=== PATIENT | female | born 1960 | race Caucasian/White ===

== ENCOUNTER 2020-06-30 18:55 | Inpatient (IN) | payer OTHER, SELFPAY ==
[2020-06-30] MEDS ORDERED: Lorazepam 2 MG/ML VIAL ONE (19:12)
[2020-06-30] MEDS ORDERED: Diazepam 5 MG TAB ONE (19:12)
[2020-06-30 20:11] LABS: Acetaminophen Less than 6.0 mcg/mL (10.0-30.0); Alcohol 134 mg/dL (Less than 10); Salicylate Less than 8.0 mg/dL (15.0-30.0)
[2020-06-30 20:13] LABS: ALT (SGPT) 40 U/L (8-55); AST (SGOT) 204 U/L (5-34); Albumin 3.4 g/dL (3.4-4.8); Alkaline Phosphatase 152 U/L (40-110); Anion Gap 29 mmol/L (10-20); BUN (Urea Nitrogen) 6 mg/dL (9.8-20.1); Bilirubin, Total 5.2 mg/dL (0.2-1.2); CK (CPK) 691 U/L (29-168); Calc. Creatinine Clearance 0 mL/min (70-130); Calcium 8.4 mg/dL (7.8-10.44); Carbon Dioxide 17 mmol/L (23-31); Chloride 95 mmol/L (98-107); Globulin 3.3 g/dL (2.4-3.5); Glucose 89 mg/dL (80-115); Hemoglobin 11.7 g/dL (12.0-15.5); Mean Corpuscular Hemoglobin 36.7 pg (27.0-33.0); Mean Corpuscular Volume 104.7 fl (81.6-98.3); Mean Platelet Volume 9.8 fl (7.4-10.4); Platelet Count 78 10x3/uL (150-450); Potassium 3.1 mmol/L (3.5-5.1); Protein, Total 6.7 g/dL (5.8-8.1); RBC Distribution Width 13.8 % (11.5-14.5); Red Blood Cell (RBC) Count 3.19 10x6/uL (3.90-5.03); Sodium 138 mmol/L (136-145); White Blood Cell (WBC) Count 7.4 10x3/uL (3.5-10.5)
[2020-06-30 20:14] LABS: MDiff Complete? YES
[2020-06-30 20:18] LABS: Band 10 % (5-11); Lymphocytes 1 % (21-51); Monocytes 7 % (0-10); Neutrophil 81 % (42-75)
[2020-06-30 20:19] LABS: Platelet Morphology Comment Appears Decreased
[2020-06-30 21:15] LABS: SARS-CoV-2 NAA Rapid Test Not Detected (NotDetected)
[2020-06-30] MEDS ORDERED: Potassium Chloride 20 MEQ TAB PO SCH (22:15)
[2020-06-30] MEDS ORDERED: Sodium Chloride 0.9% (PF) 10 ML VIAL FS PRN (22:15)
[2020-06-30] MEDS ORDERED: Pantoprazole 40 MG VIAL IVP SCH (22:15)
[2020-06-30 22:47] LABS: Lactic Acid 3.2 mmol/L (0.5-2.2)
[2020-06-30] MEDS: Thiamine HCl 200 MG/2 ML VIAL SLOW IVP SCH (23:42)
[2020-07-01] MEDS: Diazepam 5 MG TAB PO PRN ×2 (00:26→05:24)
[2020-07-01] MEDS ORDERED: Lorazepam 2 MG/ML VIAL SLOW IVP PRN (00:35)
[2020-07-01] MEDS ORDERED: Magnesium 2 GM/50 ML 2 GM in Premix Bag 1 BAG IVPB SCH (01:30)
[2020-07-01 05:22] LABS: Bilirubin 1+ (Negative); Blood, Urine 25 (Negative); Clarity Clear (Clear); Glucose, Urine (Dipstick) Normal (Negative); Ketone, Urine 50 mg/dL (Negative); Leukocyte 25 (Negative); Nitrite Negative (Negative); Protein, Urine (Dipstick) Negative (Neg-Trace); Specific Gravity, Urine 1.005 (1.002-1.036)
[2020-07-01 05:31] LABS: Amphetamine Not Detected (NotDetected); Barbiturates Screen Not Detected (NotDetected); Benzodiazepine Screen Detected (NotDetected); Cocaine Metabolite Screen Not Detected (NotDetected); Methadone Not Detected (NotDetected); Methamphetamine Not Detected (NotDetected); Opiate Screen Not Detected (NotDetected); Oxycodone Screen Not Detected (NotDetected); Phencyclidine (PCP) Not Detected (NotDetected); THC/Cannabinoid Screen Not Detected (NotDetected); Tricyclic Screen Not Detected (NotDetected)
[2020-07-01 05:37] LABS: #Monocytes 0.5 10x3/uL (0.0-1.1); #Neutrophils 4.4 10x3/uL (1.5-8.4); %Basophils 0.7 % (0.0-2.0); %Eosinophils 0.2 % (0.0-6.0); %Lymphocytes 12.8 % (18.0-47.0); %Monocytes 8.3 % (0.0-10.0); %Neutrophils 77.3 % (40.0-75.0); Hemoglobin 10.8 g/dL (12.0-15.5); Mean Corpuscular HGB CONC 35.2 g/dL (32.0-36.0); Mean Corpuscular Hemoglobin 36.7 pg (27.0-33.0); Mean Corpuscular Volume 104.4 fl (81.6-98.3); Mean Platelet Volume 10.2 fl (7.4-10.4); Platelet Count 57 10x3/uL (150-450); RBC Distribution Width 13.9 % (11.5-14.5); Red Blood Cell (RBC) Count 2.97 10x6/uL (3.90-5.03); White Blood Cell (WBC) Count 5.6 10x3/uL (3.5-10.5)
[2020-07-01 05:38] LABS: Lactic Acid 1.2 mmol/L (0.5-2.2)
[2020-07-01 05:39] LABS: Urine Culture Reflex No No
[2020-07-01 05:42] LABS: Bacteria/HPF 2+ HPF (None Seen); RBC/HPF 0-3 HPF (0-3); Squamous Epithelial 0-3 HPF (0-3); WBC/HPF 0-3 HPF (0-3)
[2020-07-01 05:43] LABS: ALT (SGPT) 36 U/L (8-55); AST (SGOT) 186 U/L (5-34); Albumin 3.1 g/dL (3.4-4.8); Alkaline Phosphatase 121 U/L (40-110); Anion Gap 27 mmol/L (10-20); BUN (Urea Nitrogen) 5 mg/dL (9.8-20.1); Bilirubin, Total 4.9 mg/dL (0.2-1.2); CK (CPK) 442 U/L (29-168); Calc. Creatinine Clearance 126 mL/min (70-130); Calcium 7.9 mg/dL (7.8-10.44); Carbon Dioxide 15 mmol/L (23-31); Chloride 102 mmol/L (98-107); Globulin 2.9 g/dL (2.4-3.5); Glucose 63 mg/dL (80-115); Magnesium 1.9 mg/dL (1.6-2.6); Potassium 3.4 mmol/L (3.5-5.1); Sodium 141 mmol/L (136-145)
[2020-07-01 06:04] LABS: Ferritin 679.93 ng/mL (10-291); Thyroid Stimulating Hormone 10.8737 uIU/mL (0.35-4.94)
[2020-07-01 06:24] LABS: INR-International Normal Ratio 1.2; PTT 27.4 sec (22.0-33.0); Prothrombin Time 13.5 sec (9.5-12.1)
[2020-07-01] MEDS: NS 0.9% w/ 40 MEQ KCL 1,000 ML IV SCH ×3 (08:48→11:22)
[2020-07-01] MEDS: Multivitamins, Adult 10 ML, Folic Acid 1 MG, Thiamine HCl 100 MG in Dextrose 5 %-0.45 %... IV SCH (11:18)
[2020-07-01] MEDS: Potassium Chloride 10 MEQ in Dextrose 5 % And 0.9 % NaCl 1,000 ML IV SCH (17:39)
[2020-07-01] MEDS: traMADol HCl 50 MG TAB PO PRN (17:39)
[2020-07-01] MEDS: Pantoprazole 40 MG VIAL IVP SCH (20:49)
[2020-07-01] MEDS: Thiamine HCl 200 MG/2 ML VIAL SLOW IVP SCH (21:17)
[2020-07-02] MEDS: Potassium Chloride 10 MEQ in Dextrose 5 % And 0.9 % NaCl 1,000 ML IV SCH ×3 (00:19→20:53)
[2020-07-02] MEDS: traMADol HCl 50 MG TAB PO PRN ×4 (00:23→23:33)
[2020-07-02 05:13] LABS: #Eosinphils 0.1 10x3/uL (0.0-0.5); #Monocytes 0.4 10x3/uL (0.0-1.1); #Neutrophils 3.3 10x3/uL (1.5-8.4); %Basophils 0.7 % (0.0-2.0); %Eosinophils 1.1 % (0.0-6.0); %Monocytes 9.3 % (0.0-10.0); %Neutrophils 73.5 % (40.0-75.0); Hemoglobin 10.3 g/dL (12.0-15.5); Mean Corpuscular Hemoglobin 36.3 pg (27.0-33.0); Mean Corpuscular Volume 103.5 fl (81.6-98.3); RBC Distribution Width 14.1 % (11.5-14.5); Red Blood Cell (RBC) Count 2.84 10x6/uL (3.90-5.03); White Blood Cell (WBC) Count 4.4 10x3/uL (3.5-10.5)
[2020-07-02 05:15] LABS: Platelet Count 60 10x3/uL (150-450)
[2020-07-02 05:26] LABS: Anion Gap 15 mmol/L (10-20); BUN (Urea Nitrogen) 4 mg/dL (9.8-20.1); Calc. Creatinine Clearance 120 mL/min (70-130); Calcium 7.5 mg/dL (7.8-10.44); Carbon Dioxide 23 mmol/L (23-31); Chloride 103 mmol/L (98-107); Glucose 147 mg/dL (80-115); Magnesium 1.5 mg/dL (1.6-2.6); Sodium 138 mmol/L (136-145)
[2020-07-02] MEDS ORDERED: Thiamine HCl 200 MG/2 ML VIAL ONE (08:19)
[2020-07-02] MEDS: Magnesium 2 GM/50 ML 2 GM in Premix Bag 1 BAG IVPB SCH ×2 (08:37→10:10)
[2020-07-02] MEDS: Dextrose 5 %-0.45 % NaCl 1,000 ML ONE ×2 (08:38→10:13)
[2020-07-02] MEDS: Ondansetron PF 4 MG/2 ML Vial IVP PRN (08:40)
[2020-07-02] MEDS ORDERED: Potassium Chloride 20 MEQ TAB PO SCH (09:00)
[2020-07-02] MEDS: Ondansetron ODT 4 MG TAB PO PRN (09:10)
[2020-07-02] MEDS ORDERED: Magnesium 2 GM/50 ML BAG (IN WATER) ONE (10:07)
[2020-07-02] MEDS: Multivitamins, Adult 10 ML, Folic Acid 1 MG, Thiamine HCl 100 MG in Dextrose 5 %-0.45 %... IV SCH (10:09)
[2020-07-02] MEDS: Diazepam 5 MG TAB PO PRN ×2 (10:09→17:34)
[2020-07-02] MEDS: cefTRIAXone\\ROCEPHIN 2 GM in Sodium Chloride 0.9% 100 ML IVPB SCH (15:57)
[2020-07-02] MEDS: Pantoprazole 40 MG VIAL IVP SCH (20:52)
[2020-07-02] MEDS: Thiamine HCl 200 MG/2 ML VIAL SLOW IVP SCH (21:45)
[2020-07-03] MEDS: Potassium Chloride 10 MEQ in Dextrose 5 % And 0.9 % NaCl 1,000 ML IV SCH ×3 (01:12→17:45)
[2020-07-03] MEDS: Levothyroxine Sodium 50 MCG TAB PO SCH (06:00)
[2020-07-03] MEDS: Diazepam 5 MG TAB PO PRN ×3 (08:16→20:26)
[2020-07-03] MEDS: Ondansetron PF 4 MG/2 ML Vial IVP PRN (09:30)
[2020-07-03] MEDS: Multivitamins, Adult 10 ML, Folic Acid 1 MG, Thiamine HCl 100 MG in Dextrose 5 %-0.45 %... IV SCH (09:34)
[2020-07-03 11:56] LABS: Free T4 (Free Thyroxine) 0.95 ng/dL (0.70-1.48)
[2020-07-03] MEDS: traMADol HCl 50 MG TAB PO PRN ×2 (12:31→18:28)
[2020-07-03] MEDS: cefTRIAXone\\ROCEPHIN 2 GM in Sodium Chloride 0.9% 100 ML IVPB SCH (14:18)
[2020-07-03] MEDS: Thiamine HCl 200 MG/2 ML VIAL SLOW IVP SCH (20:45)
[2020-07-03] MEDS: Pantoprazole 40 MG VIAL IVP SCH (20:45)
[2020-07-04] MEDS ORDERED: Dextrose 5 % And 0.9 % NaCl 1,000 ML ONE (01:52)
[2020-07-04] MEDS: Ondansetron ODT 4 MG TAB PO PRN (01:54)
[2020-07-04] MEDS: Potassium Chloride 10 MEQ in Dextrose 5 % And 0.9 % NaCl 1,000 ML IV SCH (02:00)
[2020-07-04] MEDS: D5 0.9% NS w/ 20 mEq KCl 1,000 ML IV SCH (02:40)
[2020-07-04] MEDS: Levothyroxine Sodium 50 MCG TAB PO SCH (06:13)
[2020-07-04 06:18] LABS: #Eosinphils 0.2 10x3/uL (0.0-0.5); #Monocytes 0.6 10x3/uL (0.0-1.1); #Neutrophils 3.3 10x3/uL (1.5-8.4); %Basophils 0.8 % (0.0-2.0); %Eosinophils 3.1 % (0.0-6.0); %Lymphocytes 15.6 % (18.0-47.0); %Monocytes 11.9 % (0.0-10.0); %Neutrophils 67.6 % (40.0-75.0); Hemoglobin 10.4 g/dL (12.0-15.5); Mean Corpuscular HGB CONC 34.3 g/dL (32.0-36.0); Mean Corpuscular Hemoglobin 36.5 pg (27.0-33.0); Mean Corpuscular Volume 106.3 fl (81.6-98.3); Platelet Count 90 10x3/uL (150-450); RBC Distribution Width 14.5 % (11.5-14.5); Red Blood Cell (RBC) Count 2.85 10x6/uL (3.90-5.03); White Blood Cell (WBC) Count 4.9 10x3/uL (3.5-10.5)
[2020-07-04 06:27] LABS: Anion Gap 13 mmol/L (10-20); BUN (Urea Nitrogen) Less than 4 mg/dL (9.8-20.1); Calc. Creatinine Clearance 151 mL/min (70-130); Calcium 7.4 mg/dL (7.8-10.44); Carbon Dioxide 21 mmol/L (23-31); Chloride 105 mmol/L (98-107); Glucose 93 mg/dL (80-115); Magnesium 1.6 mg/dL (1.6-2.6); Potassium 3.5 mmol/L (3.5-5.1); Sodium 135 mmol/L (136-145)
[2020-07-04 06:54] LABS: Anisocytosis SLIGHT = 6-15 cells (100X) (0-5/hpf); Macrocytosis MODERATE=16-30 cells (100X) (0-5/hpf); Platelet Morphology Comment Appears Decreased
[2020-07-04] MEDS ORDERED: D5 0.9% NS w/ 20 mEq KCl 1,000 ML ONE ×2 (09:28)
[2020-07-04] MEDS: Diazepam 5 MG TAB PO PRN ×2 (09:44→17:46)
[2020-07-04] MEDS: Ondansetron PF 4 MG/2 ML Vial IVP PRN (09:45)
[2020-07-04] MEDS: traMADol HCl 50 MG TAB PO PRN (14:06)
[2020-07-04] MEDS: cefTRIAXone\\ROCEPHIN 2 GM in Sodium Chloride 0.9% 100 ML IVPB SCH (14:07)
[2020-07-04] MEDS: Furosemide 100 MG/10 ML VIAL SLOW IVP SCH (14:07)
[2020-07-04] MEDS: Pantoprazole 40 MG VIAL IVP SCH (19:27)
[2020-07-05] MEDS: Furosemide 100 MG/10 ML VIAL SLOW IVP SCH ×2 (06:18→15:11)
[2020-07-05] MEDS: Levothyroxine Sodium 50 MCG TAB PO SCH (06:20)
[2020-07-05] MEDS: D5 0.9% NS w/ 20 mEq KCl 1,000 ML IV SCH ×2 (06:53→12:28)
[2020-07-05] MEDS: Diazepam 5 MG TAB PO PRN ×2 (08:15→19:55)
[2020-07-05] MEDS: Spironolactone 25 MG TAB PO SCH (08:16)
[2020-07-05] MEDS: traMADol HCl 50 MG TAB PO PRN ×2 (15:10→22:43)
[2020-07-05] MEDS: cefTRIAXone\\ROCEPHIN 2 GM in Sodium Chloride 0.9% 100 ML IVPB SCH (15:11)
[2020-07-05] MEDS ORDERED: Pantoprazole 40 MG VIAL ONE (20:02)
[2020-07-05] MEDS: Pantoprazole 40 MG VIAL IVP SCH (20:19)
[2020-07-06] MEDS: D5 0.9% NS w/ 20 mEq KCl 1,000 ML IV SCH ×2 (00:47→16:26)
[2020-07-06] MEDS: Diazepam 5 MG TAB PO PRN ×3 (01:50→21:34)
[2020-07-06 04:31] LABS: Anion Gap 14 mmol/L (10-20); BUN (Urea Nitrogen) 7 mg/dL (9.8-20.1); Calc. Creatinine Clearance 0 mL/min (70-130); Calcium 7.4 mg/dL (7.8-10.44); Carbon Dioxide 26 mmol/L (23-31); Chloride 100 mmol/L (98-107); Glucose 91 mg/dL (80-115); Magnesium 1.2 mg/dL (1.6-2.6); Potassium 3.2 mmol/L (3.5-5.1); Sodium 137 mmol/L (136-145)
[2020-07-06 04:34] LABS: #Eosinphils 0.1 10x3/uL (0.0-0.5); #Monocytes 0.9 10x3/uL (0.0-1.1); #Neutrophils 3.2 10x3/uL (1.5-8.4); %Basophils 0.6 % (0.0-2.0); %Eosinophils 2.1 % (0.0-6.0); %Lymphocytes 13.4 % (18.0-47.0); %Monocytes 17.5 % (0.0-10.0); %Neutrophils 65.4 % (40.0-75.0); Hemoglobin 11.2 g/dL (12.0-15.5); Mean Corpuscular HGB CONC 34.6 g/dL (32.0-36.0); Mean Corpuscular Hemoglobin 37.1 pg (27.0-33.0); Mean Corpuscular Volume 107.3 fl (81.6-98.3); Mean Platelet Volume 9.6 fl (7.4-10.4); Platelet Count 122 10x3/uL (150-450); RBC Distribution Width 15.7 % (11.5-14.5); Red Blood Cell (RBC) Count 3.02 10x6/uL (3.90-5.03); White Blood Cell (WBC) Count 4.9 10x3/uL (3.5-10.5)
[2020-07-06] MEDS: Furosemide 100 MG/10 ML VIAL SLOW IVP SCH ×2 (05:56→16:27)
[2020-07-06] MEDS: Levothyroxine Sodium 50 MCG TAB PO SCH (05:56)
[2020-07-06] MEDS ORDERED: Potassium Chloride 20 MEQ TAB PO SCH (08:00)
[2020-07-06] MEDS ORDERED: Magnesium 2 GM/50 ML 2 GM in Premix Bag 1 BAG IVPB SCH (08:15)
[2020-07-06] MEDS: traMADol HCl 50 MG TAB PO PRN (09:00)
[2020-07-06] MEDS: Spironolactone 25 MG TAB PO SCH (09:01)
[2020-07-06] MEDS: cefTRIAXone\\ROCEPHIN 2 GM in Sodium Chloride 0.9% 100 ML IVPB SCH (16:23)
[2020-07-06] MEDS: Pantoprazole 40 MG VIAL IVP SCH (20:49)
[2020-07-07 05:49] LABS: Anion Gap 15 mmol/L (10-20); BUN (Urea Nitrogen) 7 mg/dL (9.8-20.1); Calc. Creatinine Clearance 0 mL/min (70-130); Calcium 7.4 mg/dL (7.8-10.44); Carbon Dioxide 23 mmol/L (23-31); Chloride 101 mmol/L (98-107); Glucose 83 mg/dL (80-115); Potassium 3.8 mmol/L (3.5-5.1); Sodium 135 mmol/L (136-145)
[2020-07-07 05:52] LABS: #Eosinphils 0.1 10x3/uL (0.0-0.5); #Monocytes 0.8 10x3/uL (0.0-1.1); #Neutrophils 2.8 10x3/uL (1.5-8.4); %Basophils 0.9 % (0.0-2.0); %Lymphocytes 16.3 % (18.0-47.0); %Monocytes 18.3 % (0.0-10.0); %Neutrophils 61.8 % (40.0-75.0); Hemoglobin 11.4 g/dL (12.0-15.5); Mean Corpuscular HGB CONC 34.4 g/dL (32.0-36.0); Mean Corpuscular Volume 107.5 fl (81.6-98.3); Mean Platelet Volume 9.8 fl (7.4-10.4); Platelet Count 144 10x3/uL (150-450); RBC Distribution Width 16.4 % (11.5-14.5); Red Blood Cell (RBC) Count 3.08 10x6/uL (3.90-5.03); White Blood Cell (WBC) Count 4.5 10x3/uL (3.5-10.5)
[2020-07-07] MEDS: Levothyroxine Sodium 50 MCG TAB PO SCH (06:28)
[2020-07-07] MEDS: Furosemide 100 MG/10 ML VIAL SLOW IVP SCH ×2 (06:28→15:43)
[2020-07-07] MEDS: Spironolactone 25 MG TAB PO SCH (08:43)
[2020-07-07] MEDS: traMADol HCl 50 MG TAB PO PRN ×2 (08:43→20:55)
[2020-07-07] MEDS: Diazepam 5 MG TAB PO PRN (08:43)
[2020-07-07] MEDS: D5 0.9% NS w/ 20 mEq KCl 1,000 ML IV SCH (09:28)
[2020-07-07] MEDS: Pantoprazole 40 MG VIAL IVP SCH (20:49)
[2020-07-08] MEDS: D5 0.9% NS w/ 20 mEq KCl 1,000 ML IV SCH (02:24)
[2020-07-08] MEDS: Diazepam 5 MG TAB PO PRN (04:10)
[2020-07-08] MEDS: Furosemide 100 MG/10 ML VIAL SLOW IVP SCH (05:19)
[2020-07-08] MEDS: Levothyroxine Sodium 50 MCG TAB PO SCH (05:20)
[2020-07-08] MEDS ORDERED: Magnesium 2 GM/50 ML 2 GM in Premix Bag 1 BAG IVPB SCH (08:00)
[2020-07-08] MEDS: traMADol HCl 50 MG TAB PO PRN (09:03)
[2020-07-08] MEDS: Spironolactone 25 MG TAB PO SCH (09:12)
[2020-07-08] MEDS: chlordiazePOXIDE HCl 25 MG CAP PO SCH ×3 (10:54→20:39)
[2020-07-08] MEDS: Furosemide 40 MG TAB PO SCH (15:23)
[2020-07-08] MEDS: Pantoprazole 40 MG VIAL IVP SCH (20:39)
[2020-07-08] MEDS ORDERED: Lorazepam 0.5 MG TAB PO SCH (23:59)
[2020-07-09 05:06] LABS: #Basophils 0.1 10x3/uL (0.0-0.2); #Eosinphils 0.1 10x3/uL (0.0-0.5); #Monocytes 0.9 10x3/uL (0.0-1.1); #Neutrophils 5.9 10x3/uL (1.5-8.4); %Basophils 0.7 % (0.0-2.0); %Lymphocytes 14.1 % (18.0-47.0); %Monocytes 10.8 % (0.0-10.0); %Neutrophils 72.9 % (40.0-75.0); Hemoglobin 11.2 g/dL (12.0-15.5); Mean Corpuscular HGB CONC 34.4 g/dL (32.0-36.0); Mean Corpuscular Volume 107.6 fl (81.6-98.3); Mean Platelet Volume 9.9 fl (7.4-10.4); Platelet Count 209 10x3/uL (150-450); Red Blood Cell (RBC) Count 3.03 10x6/uL (3.90-5.03); White Blood Cell (WBC) Count 8.1 10x3/uL (3.5-10.5)
[2020-07-09 05:30] LABS: Anion Gap 14 mmol/L (10-20); BUN (Urea Nitrogen) 7 mg/dL (9.8-20.1); Calc. Creatinine Clearance 148 mL/min (70-130); Calcium 7.8 mg/dL (7.8-10.44); Carbon Dioxide 24 mmol/L (23-31); Chloride 98 mmol/L (98-107); Glucose 82 mg/dL (80-115); Potassium 3.8 mmol/L (3.5-5.1); Sodium 132 mmol/L (136-145)
[2020-07-09] MEDS: Levothyroxine Sodium 50 MCG TAB PO SCH (05:34)
[2020-07-09] MEDS: Furosemide 40 MG TAB PO SCH ×2 (08:30→14:38)
[2020-07-09] MEDS: Spironolactone 25 MG TAB PO SCH (08:30)
[2020-07-09] MEDS: Sodium Bicarbonate Tab 325 MG TAB PO SCH ×3 (08:31→20:58)
[2020-07-09] MEDS: chlordiazePOXIDE HCl 25 MG CAP PO SCH ×3 (08:31→20:58)
[2020-07-09] MEDS ORDERED: Milk Of Magnesia 30 ML UDCUP PO SCH (16:00)
[2020-07-09] MEDS: Pantoprazole 40 MG VIAL IVP SCH (20:58)
[2020-07-10] MEDS ORDERED: Lorazepam 0.5 MG TAB PO SCH (01:15)
[2020-07-10] MEDS: Levothyroxine Sodium 50 MCG TAB PO SCH (05:13)
[2020-07-10] MEDS: Sodium Bicarbonate Tab 325 MG TAB PO SCH ×3 (08:46→20:43)
[2020-07-10] MEDS: Furosemide 40 MG TAB PO SCH ×2 (08:46→15:07)
[2020-07-10] MEDS: Spironolactone 25 MG TAB PO SCH (08:46)
[2020-07-10] MEDS: chlordiazePOXIDE HCl 25 MG CAP PO SCH ×2 (08:46→20:43)
[2020-07-10] MEDS ORDERED: Pantoprazole 40 MG VIAL ONE (20:34)
[2020-07-10] MEDS: Pantoprazole 40 MG VIAL IVP SCH (20:43)
[2020-07-11] MEDS: Levothyroxine Sodium 50 MCG TAB PO SCH (05:11)
[2020-07-11 06:05] LABS: #Basophils 0.1 10x3/uL (0.0-0.2); #Eosinphils 0.1 10x3/uL (0.0-0.5); #Monocytes 0.9 10x3/uL (0.0-1.1); #Neutrophils 7.7 10x3/uL (1.5-8.4); %Basophils 0.9 % (0.0-2.0); %Lymphocytes 13.2 % (18.0-47.0); %Monocytes 8.9 % (0.0-10.0); %Neutrophils 75.2 % (40.0-75.0); Hemoglobin 10.9 g/dL (12.0-15.5); Mean Corpuscular HGB CONC 34.8 g/dL (32.0-36.0); Mean Corpuscular Hemoglobin 36.2 pg (27.0-33.0); Mean Platelet Volume 9.4 fl (7.4-10.4); Platelet Count 253 10x3/uL (150-450); RBC Distribution Width 17.1 % (11.5-14.5); Red Blood Cell (RBC) Count 3.01 10x6/uL (3.90-5.03); White Blood Cell (WBC) Count 10.2 10x3/uL (3.5-10.5)
[2020-07-11 06:25] LABS: Anion Gap 15 mmol/L (10-20); BUN (Urea Nitrogen) 9 mg/dL (9.8-20.1); Calc. Creatinine Clearance 127 mL/min (70-130); Calcium 8.2 mg/dL (7.8-10.44); Carbon Dioxide 25 mmol/L (23-31); Chloride 100 mmol/L (98-107); Glucose 85 mg/dL (80-115); Magnesium 1.6 mg/dL (1.6-2.6); Potassium 3.4 mmol/L (3.5-5.1); Sodium 137 mmol/L (136-145)
[2020-07-11] MEDS ORDERED: Potassium Chloride 20 MEQ TAB PO SCH (07:45)
[2020-07-11] MEDS: Sodium Bicarbonate Tab 325 MG TAB PO SCH ×3 (08:45→20:27)
[2020-07-11] MEDS: Spironolactone 25 MG TAB PO SCH (08:45)
[2020-07-11] MEDS: Furosemide 40 MG TAB PO SCH ×2 (08:46→14:26)
[2020-07-11] MEDS: chlordiazePOXIDE HCl 25 MG CAP PO SCH ×2 (08:47→20:27)
[2020-07-11] MEDS: traMADol HCl 50 MG TAB PO PRN (08:47)
[2020-07-11] MEDS: Pantoprazole 40 MG VIAL IVP SCH (20:27)
[2020-07-11] MEDS: Magnesium Oxide 400 MG TAB PO SCH (20:27)
[2020-07-12] MEDS: Levothyroxine Sodium 50 MCG TAB PO SCH (05:22)
[2020-07-12] MEDS: Spironolactone 25 MG TAB PO SCH (08:22)
[2020-07-12] MEDS: Magnesium Oxide 400 MG TAB PO SCH ×2 (08:22→21:24)
[2020-07-12] MEDS: Furosemide 40 MG TAB PO SCH ×2 (08:22→14:44)
[2020-07-12] MEDS: chlordiazePOXIDE HCl 25 MG CAP PO SCH ×2 (08:22→21:24)
[2020-07-12] MEDS: Sodium Bicarbonate Tab 325 MG TAB PO SCH ×3 (08:22→21:24)
[2020-07-12] MEDS: Pantoprazole 40 MG VIAL IVP SCH (21:24)
[2020-07-13] MEDS: Levothyroxine Sodium 50 MCG TAB PO SCH (06:02)
[2020-07-13] MEDS: Spironolactone 25 MG TAB PO SCH (09:08)
[2020-07-13] MEDS: Sodium Bicarbonate Tab 325 MG TAB PO SCH ×3 (09:08→20:56)
[2020-07-13] MEDS: Furosemide 40 MG TAB PO SCH ×2 (09:09→14:56)
[2020-07-13] MEDS: chlordiazePOXIDE HCl 25 MG CAP PO SCH ×2 (09:09→20:56)
[2020-07-13] MEDS: Magnesium Oxide 400 MG TAB PO SCH ×2 (09:09→20:56)
[2020-07-13] MEDS ORDERED: Folic Acid 1 MG TAB PO SCH (09:30)
[2020-07-13] MEDS ORDERED: Thiamine 100 MG TAB PO SCH (09:30)
[2020-07-13] MEDS: Pantoprazole 40 MG VIAL IVP SCH (20:57)
[2020-07-14] MEDS: Levothyroxine Sodium 50 MCG TAB PO SCH (05:40)
[2020-07-14 09:18] LABS: Anion Gap 18 mmol/L (10-20); BUN (Urea Nitrogen) 12 mg/dL (9.8-20.1); Calc. Creatinine Clearance 109 mL/min (70-130); Calcium 8.5 mg/dL (7.8-10.44); Carbon Dioxide 26 mmol/L (23-31); Chloride 98 mmol/L (98-107); Glucose 85 mg/dL (80-115); Magnesium 1.8 mg/dL (1.6-2.6); Potassium 3.6 mmol/L (3.5-5.1); Sodium 138 mmol/L (136-145)
[2020-07-14 09:21] LABS: #Basophils 0.1 10x3/uL (0.0-0.2); #Eosinphils 0.1 10x3/uL (0.0-0.5); #Neutrophils 9.5 10x3/uL (1.5-8.4); %Basophils 0.9 % (0.0-2.0); %Eosinophils 0.8 % (0.0-6.0); %Lymphocytes 16.1 % (18.0-47.0); %Monocytes 8.1 % (0.0-10.0); %Neutrophils 73.4 % (40.0-75.0); Hemoglobin 10.4 g/dL (12.0-15.5); Mean Corpuscular HGB CONC 34.8 g/dL (32.0-36.0); Mean Corpuscular Hemoglobin 36.6 pg (27.0-33.0); Mean Corpuscular Volume 105.3 fl (81.6-98.3); Mean Platelet Volume 9.5 fl (7.4-10.4); Platelet Count 249 10x3/uL (150-450); RBC Distribution Width 17.3 % (11.5-14.5); Red Blood Cell (RBC) Count 2.84 10x6/uL (3.90-5.03); White Blood Cell (WBC) Count 12.9 10x3/uL (3.5-10.5)
[2020-07-14] MEDS: Magnesium Oxide 400 MG TAB PO SCH ×3 (09:43→21:26)
[2020-07-14] MEDS: Spironolactone 25 MG TAB PO SCH (09:43)
[2020-07-14] MEDS: Folic Acid 1 MG TAB PO SCH (09:43)
[2020-07-14] MEDS: Thiamine 100 MG TAB PO SCH (09:43)
[2020-07-14] MEDS: chlordiazePOXIDE HCl 5 MG CAP PO SCH ×3 (09:43→21:22)
[2020-07-14] MEDS: Sodium Bicarbonate Tab 325 MG TAB PO SCH ×3 (09:43→21:27)
[2020-07-14 13:12] LABS: Macrocytosis SLIGHT = 6-15 cells (100X) (0-5/hpf)
[2020-07-14 13:13] LABS: Platelet Morphology Comment Appears Adequate
[2020-07-14] MEDS ORDERED: Lorazepam 2 MG/ML VIAL SLOW IVP PRN (15:29)
[2020-07-14 16:53] LABS: ALT (SGPT) 29 U/L (8-55); AST (SGOT) 119 U/L (5-34); Albumin 2.4 g/dL (3.4-4.8); Alkaline Phosphatase 117 U/L (40-110); Anion Gap 16 mmol/L (10-20); BUN (Urea Nitrogen) 13 mg/dL (9.8-20.1); Bilirubin, Total 16.2 mg/dL (0.2-1.2); Calc. Creatinine Clearance 108 mL/min (70-130); Calcium 8.6 mg/dL (7.8-10.44); Carbon Dioxide 27 mmol/L (23-31); Chloride 98 mmol/L (98-107); Globulin 3.4 g/dL (2.4-3.5); Glucose 98 mg/dL (80-115); Potassium 3.8 mmol/L (3.5-5.1); Protein, Total 5.8 g/dL (5.8-8.1)
[2020-07-14 16:59] LABS: Sodium 137 mmol/L (136-145)
[2020-07-14] MEDS ORDERED: Pantoprazole 40 MG VIAL ONE (21:30)
[2020-07-14] MEDS: Pantoprazole 40 MG VIAL IVP SCH (21:31)
[2020-07-15] MEDS: Levothyroxine Sodium 50 MCG TAB PO SCH (05:19)
[2020-07-15 06:28] LABS: #Basophils 0.1 10x3/uL (0.0-0.2); #Eosinphils 0.2 10x3/uL (0.0-0.5); #Monocytes 0.9 10x3/uL (0.0-1.1); %Basophils 0.8 % (0.0-2.0); %Eosinophils 1.4 % (0.0-6.0); %Lymphocytes 12.4 % (18.0-47.0); %Monocytes 6.7 % (0.0-10.0); %Neutrophils 78.1 % (40.0-75.0); Hemoglobin 10.9 g/dL (12.0-15.5); Mean Corpuscular HGB CONC 34.2 g/dL (32.0-36.0); Mean Corpuscular Hemoglobin 36.9 pg (27.0-33.0); Mean Corpuscular Volume 108.1 fl (81.6-98.3); Mean Platelet Volume 9.2 fl (7.4-10.4); Platelet Count 259 10x3/uL (150-450); RBC Distribution Width 17.9 % (11.5-14.5); Red Blood Cell (RBC) Count 2.95 10x6/uL (3.90-5.03); White Blood Cell (WBC) Count 12.8 10x3/uL (3.5-10.5)
[2020-07-15] MEDS: Spironolactone 25 MG TAB PO SCH (08:20)
[2020-07-15] MEDS: Furosemide 40 MG TAB PO SCH (08:20)
[2020-07-15] MEDS: Sodium Bicarbonate Tab 325 MG TAB PO SCH ×3 (08:20→22:00)
[2020-07-15] MEDS: Folic Acid 1 MG TAB PO SCH (08:20)
[2020-07-15] MEDS: chlordiazePOXIDE HCl 5 MG CAP PO SCH ×3 (08:20→22:24)
[2020-07-15] MEDS: Thiamine 100 MG TAB PO SCH (08:20)
[2020-07-15] MEDS: Magnesium Oxide 400 MG TAB PO SCH (22:00)
[2020-07-15] MEDS: Pantoprazole 40 MG VIAL IVP SCH (22:24)
[2020-07-16] MEDS: Levothyroxine Sodium 50 MCG TAB PO SCH (05:17)
[2020-07-16] MEDS: Folic Acid 1 MG TAB PO SCH (09:31)
[2020-07-16] MEDS: Thiamine 100 MG TAB PO SCH (09:31)
[2020-07-16] MEDS: Spironolactone 25 MG TAB PO SCH (09:31)
[2020-07-16] MEDS: Sodium Bicarbonate Tab 325 MG TAB PO SCH ×3 (09:31→21:07)
[2020-07-16] MEDS: Magnesium Oxide 400 MG TAB PO SCH ×2 (09:31→21:07)
[2020-07-16] MEDS: chlordiazePOXIDE HCl 5 MG CAP PO SCH ×3 (09:32→22:30)
[2020-07-16] MEDS: Furosemide 40 MG TAB PO SCH (09:34)
[2020-07-16] MEDS: Pantoprazole 40 MG VIAL IVP SCH (21:08)
[2020-07-17] MEDS: Levothyroxine Sodium 50 MCG TAB PO SCH (05:55)
[2020-07-17] MEDS: Pantoprazole 40 MG VIAL IVP SCH (08:53)
[2020-07-17] MEDS: Sodium Bicarbonate Tab 325 MG TAB PO SCH ×3 (08:53→20:01)
[2020-07-17] MEDS: chlordiazePOXIDE HCl 5 MG CAP PO SCH ×3 (08:54→20:00)
[2020-07-17] MEDS: Magnesium Oxide 400 MG TAB PO SCH ×2 (08:54→20:01)
[2020-07-17] MEDS: Folic Acid 1 MG TAB PO SCH (08:54)
[2020-07-17] MEDS: Furosemide 40 MG TAB PO SCH (08:54)
[2020-07-17] MEDS: Spironolactone 25 MG TAB PO SCH (08:54)
[2020-07-17] MEDS: Thiamine 100 MG TAB PO SCH (08:54)
[2020-07-17 10:55] LABS: #Basophils 0.1 10x3/uL (0.0-0.2); #Eosinphils 0.3 10x3/uL (0.0-0.5); #Monocytes 0.9 10x3/uL (0.0-1.1); #Neutrophils 11.5 10x3/uL (1.5-8.4); %Basophils 0.9 % (0.0-2.0); %Lymphocytes 9.9 % (18.0-47.0); %Monocytes 6.4 % (0.0-10.0); %Neutrophils 79.7 % (40.0-75.0); Hemoglobin 10.3 g/dL (12.0-15.5); Mean Corpuscular HGB CONC 33.9 g/dL (32.0-36.0); Mean Corpuscular Hemoglobin 36.5 pg (27.0-33.0); Mean Corpuscular Volume 107.8 fl (81.6-98.3); Mean Platelet Volume 9.3 fl (7.4-10.4); Platelet Count 301 10x3/uL (150-450); Red Blood Cell (RBC) Count 2.82 10x6/uL (3.90-5.03); White Blood Cell (WBC) Count 14.4 10x3/uL (3.5-10.5)
[2020-07-17 11:02] LABS: ALT (SGPT) 28 U/L (8-55); AST (SGOT) 134 U/L (5-34); Albumin 2.5 g/dL (3.4-4.8); Alkaline Phosphatase 128 U/L (40-110); Anion Gap 15 mmol/L (10-20); BUN (Urea Nitrogen) 15 mg/dL (9.8-20.1); Bilirubin, Total 18.1 mg/dL (0.2-1.2); Calc. Creatinine Clearance 98 mL/min (70-130); Calcium 8.6 mg/dL (7.8-10.44); Carbon Dioxide 24 mmol/L (23-31); Chloride 100 mmol/L (98-107); Glucose 118 mg/dL (80-115); Potassium 4.1 mmol/L (3.5-5.1); Protein, Total 6.1 g/dL (5.8-8.1); Sodium 135 mmol/L (136-145)
[2020-07-17 11:35] LABS: Bilirubin, Direct 13.7 mg/dL (0.1-0.3)
[2020-07-18] MEDS: Levothyroxine Sodium 50 MCG TAB PO SCH (07:13)
[2020-07-18] MEDS: Sodium Bicarbonate Tab 325 MG TAB PO SCH ×3 (10:08→20:05)
[2020-07-18] MEDS: Folic Acid 1 MG TAB PO SCH (10:08)
[2020-07-18] MEDS: Furosemide 40 MG TAB PO SCH (10:08)
[2020-07-18] MEDS: Thiamine 100 MG TAB PO SCH (10:09)
[2020-07-18] MEDS: Spironolactone 25 MG TAB PO SCH (10:09)
[2020-07-18] MEDS: Magnesium Oxide 400 MG TAB PO SCH ×2 (10:09→20:05)
[2020-07-18] MEDS: chlordiazePOXIDE HCl 5 MG CAP PO SCH ×3 (10:17→20:04)
[2020-07-18 15:10] LABS: Bilirubin 6 (Negative); Blood, Urine 25 (Negative); Clarity Slightly Cloudy (Clear); Glucose, Urine (Dipstick) Normal (Negative); Ketone, Urine Negative (Negative); Leukocyte 25 (Negative); Nitrite Positive (Negative); Protein, Urine (Dipstick) Negative (Neg-Trace); Specific Gravity, Urine 1.015 (1.002-1.036)
[2020-07-18 15:19] LABS: Bacteria/HPF 3+ HPF (None Seen); RBC/HPF None Seen HPF (0-3); Squamous Epithelial 0-3 HPF (0-3); WBC/HPF 0-3 HPF (0-3)
[2020-07-18 15:20] LABS: Urine Culture Reflex Yes Yes
[2020-07-18] MEDS: Cipro 250 MG TAB PO SCH (20:04)
[2020-07-18] MEDS: Pantoprazole 40 MG VIAL IVP SCH (20:06)
[2020-07-19] MEDS: Cipro 250 MG TAB PO SCH ×2 (05:39→21:31)
[2020-07-19] MEDS: Levothyroxine Sodium 50 MCG TAB PO SCH (05:39)
[2020-07-19] MEDS: Furosemide 40 MG TAB PO SCH (09:24)
[2020-07-19] MEDS: Spironolactone 25 MG TAB PO SCH (09:26)
[2020-07-19] MEDS: Folic Acid 1 MG TAB PO SCH (09:26)
[2020-07-19] MEDS: chlordiazePOXIDE HCl 5 MG CAP PO SCH ×3 (09:26→21:32)
[2020-07-19] MEDS: Sodium Bicarbonate Tab 325 MG TAB PO SCH ×3 (09:27→21:32)
[2020-07-19] MEDS: Magnesium Oxide 400 MG TAB PO SCH ×2 (09:27→23:00)
[2020-07-19] MEDS: Thiamine 100 MG TAB PO SCH (09:27)
[2020-07-19 11:54] LABS: HBCM Index 0.09 S/CO (0-0.79); HBSAg Index 0.17 S/CO (0-0.99); Hep A IgM AB Non-Reactive (NonReactive); Hep A IgM S/CO 0.27 S/CO (0-0.79); Hep B Surf Ag Non-Reactive S/CO (NonReactive); Hep C IgG Ab Non-Reactive (NonReactive); Hep C Index 0.28 S/CO (0-0.79); Hepatitis B Core IgM Abs Non-Reactive (NonReactive)
[2020-07-19] MEDS: Pantoprazole 40 MG VIAL IVP SCH (21:32)
[2020-07-20] MEDS: Levothyroxine Sodium 50 MCG TAB PO SCH (05:00)
[2020-07-20] MEDS: Cipro 250 MG TAB PO SCH ×2 (06:17→21:11)
[2020-07-20] MEDS: Furosemide 40 MG TAB PO SCH (08:21)
[2020-07-20] MEDS: Sodium Bicarbonate Tab 325 MG TAB PO SCH ×3 (08:26→21:11)
[2020-07-20] MEDS: chlordiazePOXIDE HCl 5 MG CAP PO SCH ×3 (08:26→21:11)
[2020-07-20] MEDS: Folic Acid 1 MG TAB PO SCH (08:26)
[2020-07-20] MEDS: Spironolactone 25 MG TAB PO SCH (08:26)
[2020-07-20] MEDS: Magnesium Oxide 400 MG TAB PO SCH ×2 (08:26→21:11)
[2020-07-20] MEDS: Thiamine 100 MG TAB PO SCH (08:26)
[2020-07-20] MEDS ORDERED: Pantoprazole 40 MG VIAL ONE (21:02)
[2020-07-20] MEDS: Pantoprazole 40 MG VIAL IVP SCH (21:11)
[2020-07-21] MEDS: Levothyroxine Sodium 50 MCG TAB PO SCH (05:07)
[2020-07-21] MEDS: Cipro 250 MG TAB PO SCH ×2 (05:07→20:38)
[2020-07-21 06:01] LABS: #Basophils 0.1 10x3/uL (0.0-0.2); #Eosinphils 0.3 10x3/uL (0.0-0.5); #Monocytes 1.2 10x3/uL (0.0-1.1); #Neutrophils 11.5 10x3/uL (1.5-8.4); %Basophils 0.9 % (0.0-2.0); %Eosinophils 1.8 % (0.0-6.0); %Lymphocytes 8.9 % (18.0-47.0); %Neutrophils 79.4 % (40.0-75.0); Hemoglobin 10.5 g/dL (12.0-15.5); Mean Corpuscular Volume 108.8 fl (81.6-98.3); Mean Platelet Volume 9.3 fl (7.4-10.4); Platelet Count 310 10x3/uL (150-450); RBC Distribution Width 17.7 % (11.5-14.5); Red Blood Cell (RBC) Count 2.84 10x6/uL (3.90-5.03); White Blood Cell (WBC) Count 14.5 10x3/uL (3.5-10.5)
[2020-07-21 06:14] LABS: Anion Gap 17 mmol/L (10-20); BUN (Urea Nitrogen) 18 mg/dL (9.8-20.1); Calc. Creatinine Clearance 81 mL/min (70-130); Calcium 8.7 mg/dL (7.8-10.44); Carbon Dioxide 21 mmol/L (23-31); Chloride 103 mmol/L (98-107); Glucose 89 mg/dL (80-115); Potassium 3.9 mmol/L (3.5-5.1); Sodium 137 mmol/L (136-145)
[2020-07-21] MEDS: Spironolactone 25 MG TAB PO SCH (08:51)
[2020-07-21] MEDS: Folic Acid 1 MG TAB PO SCH (08:51)
[2020-07-21] MEDS: Sodium Bicarbonate Tab 325 MG TAB PO SCH ×3 (08:51→21:38)
[2020-07-21] MEDS: Magnesium Oxide 400 MG TAB PO SCH ×2 (08:51→21:38)
[2020-07-21] MEDS: Thiamine 100 MG TAB PO SCH (08:51)
[2020-07-21] MEDS: Furosemide 40 MG TAB PO SCH (08:52)
[2020-07-21] MEDS: chlordiazePOXIDE HCl 5 MG CAP PO SCH ×3 (08:52→21:38)
[2020-07-21] MEDS: Pantoprazole 40 MG VIAL IVP SCH (21:38)
[2020-07-22] MEDS: Cipro 250 MG TAB PO SCH ×2 (05:36→20:41)
[2020-07-22] MEDS: Levothyroxine Sodium 50 MCG TAB PO SCH (05:36)
[2020-07-22 05:49] LABS: Anion Gap 17 mmol/L (10-20); BUN (Urea Nitrogen) 18 mg/dL (9.8-20.1); Calc. Creatinine Clearance 86 mL/min (70-130); Calcium 8.8 mg/dL (7.8-10.44); Carbon Dioxide 21 mmol/L (23-31); Chloride 102 mmol/L (98-107); Glucose 89 mg/dL (80-115); Magnesium 2.3 mg/dL (1.6-2.6); Potassium 3.8 mmol/L (3.5-5.1); Sodium 136 mmol/L (136-145)
[2020-07-22 05:55] LABS: #Basophils 0.1 10x3/uL (0.0-0.2); #Eosinphils 0.3 10x3/uL (0.0-0.5); #Monocytes 1.1 10x3/uL (0.0-1.1); #Neutrophils 11.1 10x3/uL (1.5-8.4); %Basophils 0.8 % (0.0-2.0); %Eosinophils 2.3 % (0.0-6.0); %Lymphocytes 9.6 % (18.0-47.0); %Monocytes 7.5 % (0.0-10.0); %Neutrophils 78.9 % (40.0-75.0); Hemoglobin 10.5 g/dL (12.0-15.5); Mean Corpuscular HGB CONC 33.7 g/dL (32.0-36.0); Mean Corpuscular Volume 109.9 fl (81.6-98.3); Mean Platelet Volume 9.3 fl (7.4-10.4); Platelet Count 313 10x3/uL (150-450); RBC Distribution Width 17.6 % (11.5-14.5); Red Blood Cell (RBC) Count 2.84 10x6/uL (3.90-5.03); White Blood Cell (WBC) Count 14.1 10x3/uL (3.5-10.5)
[2020-07-22] MEDS: Furosemide 40 MG TAB PO SCH (08:30)
[2020-07-22] MEDS: Magnesium Oxide 400 MG TAB PO SCH ×2 (09:15→20:40)
[2020-07-22] MEDS: Sodium Bicarbonate Tab 325 MG TAB PO SCH ×3 (09:15→20:40)
[2020-07-22] MEDS: chlordiazePOXIDE HCl 5 MG CAP PO SCH ×3 (09:15→20:40)
[2020-07-22] MEDS: Thiamine 100 MG TAB PO SCH (09:15)
[2020-07-22] MEDS: Folic Acid 1 MG TAB PO SCH (09:15)
[2020-07-22] MEDS: Spironolactone 25 MG TAB PO SCH (09:15)
[2020-07-22] MEDS: Pantoprazole 40 MG VIAL IVP SCH (21:03)
[2020-07-23 03:40] LABS: #Basophils 0.1 10x3/uL (0.0-0.2); #Eosinphils 0.3 10x3/uL (0.0-0.5); #Monocytes 1.2 10x3/uL (0.0-1.1); #Neutrophils 13.2 10x3/uL (1.5-8.4); %Basophils 0.7 % (0.0-2.0); %Eosinophils 1.9 % (0.0-6.0); %Lymphocytes 10.4 % (18.0-47.0); %Neutrophils 78.8 % (40.0-75.0); Hemoglobin 9.1 g/dL (12.0-15.5); Mean Corpuscular Hemoglobin 37.1 pg (27.0-33.0); Mean Corpuscular Volume 109.4 fl (81.6-98.3); Mean Platelet Volume 9.1 fl (7.4-10.4); Platelet Count 344 10x3/uL (150-450); RBC Distribution Width 17.4 % (11.5-14.5); Red Blood Cell (RBC) Count 2.45 10x6/uL (3.90-5.03); White Blood Cell (WBC) Count 16.8 10x3/uL (3.5-10.5)
[2020-07-23 03:49] LABS: Anion Gap 17 mmol/L (10-20); BUN (Urea Nitrogen) 19 mg/dL (9.8-20.1); Bilirubin, Total 23.4 mg/dL (0.2-1.2); Calc. Creatinine Clearance 81 mL/min (70-130); Calcium 8.9 mg/dL (7.8-10.44); Carbon Dioxide 21 mmol/L (23-31); Chloride 102 mmol/L (98-107); Glucose 91 mg/dL (80-115); Potassium 3.9 mmol/L (3.5-5.1); Sodium 136 mmol/L (136-145)
[2020-07-23] MEDS: Levothyroxine Sodium 50 MCG TAB PO SCH (06:16)
[2020-07-23] MEDS: Cipro 250 MG TAB PO SCH ×2 (06:16→21:20)
[2020-07-23 08:15] LABS: INR-International Normal Ratio 1.4; PTT 30.8 sec (22.0-33.0); Prothrombin Time 15.6 sec (9.5-12.1)
[2020-07-23] MEDS: Sodium Bicarbonate Tab 325 MG TAB PO SCH ×3 (10:12→21:20)
[2020-07-23] MEDS: Magnesium Oxide 400 MG TAB PO SCH (10:12)
[2020-07-23] MEDS: Spironolactone 25 MG TAB PO SCH ×2 (10:13→10:29)
[2020-07-23] MEDS: Thiamine 100 MG TAB PO SCH (10:13)
[2020-07-23] MEDS: Furosemide 40 MG TAB PO SCH ×2 (10:13→10:29)
[2020-07-23] MEDS: chlordiazePOXIDE HCl 5 MG CAP PO SCH ×3 (10:13→21:20)
[2020-07-23] MEDS: Folic Acid 1 MG TAB PO SCH (10:13)
[2020-07-23] MEDS: Pantoprazole 40 MG VIAL IVP SCH (21:19)
[2020-07-24] MEDS: Magnesium Oxide 400 MG TAB PO SCH ×3 (02:59→20:30)
[2020-07-24 04:25] LABS: #Basophils 0.1 10x3/uL (0.0-0.2); #Eosinphils 0.3 10x3/uL (0.0-0.5); #Monocytes 1.1 10x3/uL (0.0-1.1); #Neutrophils 12.9 10x3/uL (1.5-8.4); %Basophils 0.6 % (0.0-2.0); %Eosinophils 1.9 % (0.0-6.0); %Lymphocytes 10.4 % (18.0-47.0); %Monocytes 6.5 % (0.0-10.0); %Neutrophils 79.5 % (40.0-75.0); Hemoglobin 10.2 g/dL (12.0-15.5); Mean Corpuscular HGB CONC 34.1 g/dL (32.0-36.0); Mean Corpuscular Hemoglobin 37.5 pg (27.0-33.0); Mean Corpuscular Volume 109.9 fl (81.6-98.3); Mean Platelet Volume 9.1 fl (7.4-10.4); Platelet Count 309 10x3/uL (150-450); RBC Distribution Width 17.2 % (11.5-14.5); Red Blood Cell (RBC) Count 2.72 10x6/uL (3.90-5.03); White Blood Cell (WBC) Count 16.2 10x3/uL (3.5-10.5)
[2020-07-24 04:42] LABS: Anion Gap 16 mmol/L (10-20); BUN (Urea Nitrogen) 18 mg/dL (9.8-20.1); Calc. Creatinine Clearance 82 mL/min (70-130); Carbon Dioxide 22 mmol/L (23-31); Chloride 105 mmol/L (98-107); Potassium 3.9 mmol/L (3.5-5.1); Sodium 139 mmol/L (136-145)
[2020-07-24 04:43] LABS: Calcium 9.1 mg/dL (7.8-10.44); Glucose 95 mg/dL (80-115)
[2020-07-24] MEDS: Cipro 250 MG TAB PO SCH ×2 (06:34→20:29)
[2020-07-24] MEDS: Levothyroxine Sodium 50 MCG TAB PO SCH (06:34)
[2020-07-24] MEDS: Sodium Bicarbonate Tab 325 MG TAB PO SCH ×3 (09:13→20:30)
[2020-07-24] MEDS: Furosemide 40 MG TAB PO SCH (09:13)
[2020-07-24] MEDS: Thiamine 100 MG TAB PO SCH (09:13)
[2020-07-24] MEDS: Spironolactone 25 MG TAB PO SCH (09:13)
[2020-07-24] MEDS: Folic Acid 1 MG TAB PO SCH (09:13)
[2020-07-24] MEDS: chlordiazePOXIDE HCl 5 MG CAP PO SCH (09:14)
[2020-07-24] MEDS: Pantoprazole 40 MG VIAL IVP SCH (20:30)
[2020-07-25] MEDS: Levothyroxine Sodium 50 MCG TAB PO SCH (05:25)
[2020-07-25] MEDS: Cipro 250 MG TAB PO SCH ×2 (05:25→20:48)
[2020-07-25 05:26] LABS: Mean Corpuscular HGB CONC 33.4 g/dL (32.0-36.0); Mean Corpuscular Hemoglobin 36.6 pg (27.0-33.0); Mean Corpuscular Volume 109.5 fl (81.6-98.3); Mean Platelet Volume 9.1 fl (7.4-10.4); Platelet Count 296 10x3/uL (150-450); RBC Distribution Width 16.9 % (11.5-14.5); Red Blood Cell (RBC) Count 2.73 10x6/uL (3.90-5.03); White Blood Cell (WBC) Count 15.2 10x3/uL (3.5-10.5)
[2020-07-25 05:39] LABS: Anion Gap 16 mmol/L (10-20); BUN (Urea Nitrogen) 17 mg/dL (9.8-20.1); Calc. Creatinine Clearance 91 mL/min (70-130); Carbon Dioxide 23 mmol/L (23-31); Chloride 104 mmol/L (98-107); Glucose 79 mg/dL (80-115); Potassium 3.8 mmol/L (3.5-5.1); Sodium 139 mmol/L (136-145)
[2020-07-25 06:23] LABS: Anisocytosis SLIGHT = 6-15 cells (100X) (0-5/hpf); Hypochromia SLIGHT = 6-15 cells (100X) (0-5/hpf); Platelet Morphology Comment Appears Adequate; Target Cells SLIGHT = 2-5 cells (100X) (0-1/hpf)
[2020-07-25] MEDS: Magnesium Oxide 400 MG TAB PO SCH ×2 (10:18→20:49)
[2020-07-25] MEDS: Sodium Bicarbonate Tab 325 MG TAB PO SCH ×3 (10:18→20:49)
[2020-07-25] MEDS: Thiamine 100 MG TAB PO SCH (10:18)
[2020-07-25] MEDS: prednisoLONE 15 MG/5 ML UDCUP PO SCH (10:19)
[2020-07-25] MEDS: Spironolactone 25 MG TAB PO SCH (10:19)
[2020-07-25] MEDS: Folic Acid 1 MG TAB PO SCH (10:19)
[2020-07-25] MEDS: Furosemide 40 MG TAB PO SCH (10:19)
[2020-07-25 12:18] LABS: Hep C IgG Ab Non-Reactive (NonReactive); Hep C Index 0.25 S/CO (0-0.79)
[2020-07-25] MEDS: Pantoprazole 40 MG VIAL IVP SCH (20:50)
[2020-07-26 05:11] LABS: Mean Corpuscular HGB CONC 34.2 g/dL (32.0-36.0); Platelet Count 309 10x3/uL (150-450); RBC Distribution Width 16.8 % (11.5-14.5); Red Blood Cell (RBC) Count 2.63 10x6/uL (3.90-5.03); White Blood Cell (WBC) Count 20.9 10x3/uL (3.5-10.5)
[2020-07-26] MEDS: Levothyroxine Sodium 50 MCG TAB PO SCH (05:18)
[2020-07-26 06:03] LABS: Anion Gap 16 mmol/L (10-20); Carbon Dioxide 22 mmol/L (23-31); Chloride 103 mmol/L (98-107); Sodium 137 mmol/L (136-145)
[2020-07-26 06:09] LABS: BUN (Urea Nitrogen) 19 mg/dL (9.8-20.1); Calc. Creatinine Clearance 87 mL/min (70-130); Glucose 113 mg/dL (80-115)
[2020-07-26 06:15] LABS: Band 17 % (5-11); Lymphocytes 4 % (21-51); Monocytes 4 % (0-10); Neutrophil 70 % (42-75); Reactive Lymphocytes 5 % (0-10)
[2020-07-26 06:17] LABS: Manual Diff?? YES
[2020-07-26 06:18] LABS: Platelet Morphology Comment Appears Adequate
[2020-07-26 06:19] LABS: Anisocytosis SLIGHT = 6-15 cells (100X) (0-5/hpf); Macrocytosis SLIGHT = 6-15 cells (100X) (0-5/hpf)
[2020-07-26] MEDS: Cipro 250 MG TAB PO SCH (06:27)
[2020-07-26] MEDS: Furosemide 40 MG TAB PO SCH (08:51)
[2020-07-26] MEDS: Spironolactone 25 MG TAB PO SCH (08:51)
[2020-07-26] MEDS: Sodium Bicarbonate Tab 325 MG TAB PO SCH ×3 (08:51→21:04)
[2020-07-26] MEDS: Magnesium Oxide 400 MG TAB PO SCH ×2 (08:51→21:04)
[2020-07-26] MEDS: Thiamine 100 MG TAB PO SCH (08:51)
[2020-07-26] MEDS: Folic Acid 1 MG TAB PO SCH (08:52)
[2020-07-26] MEDS: prednisoLONE 15 MG/5 ML UDCUP PO SCH (08:53)
[2020-07-26] MEDS ORDERED: Spironolactone 25 MG TAB PO SCH (16:45)
[2020-07-26 17:01] LABS: ANA Symphony (Qualitative) POSITIVE (Negative); ANA Symphony (Quantitative) 1.2 Ratio (< 0.7 Negative); CENP IgG Antibody 0.4 EliAU/mL (<7 Negative); EliA Vaculitis New Method **** NEW METHOD ****; Jo-1 IgG Antibody Less than 0.3 EliAU/mL (<7 Negative); Mitochondrial Ab 1.6 U/mL (<4 Negative); RNP70 IgG Antibody Less than 0.3 EliAU/mL (<7 Negative); SSA/Ro IgG Antibody 8.9 EliAU/mL (<7 Negative); SSB/La IgG Antibody 0.3 EliAU/mL (<7 Negative); Scleroderma-70 IgG Antibody Less than 0.6 EliAU/mL (<7 Negative); Smith D IgG Antibody 1.2 EliAU/mL (<7 Negative); dsDNA IgG Antibody 0.8 IU/mL (<10 Negative)
[2020-07-26] MEDS: Pantoprazole 40 MG VIAL IVP SCH (21:04)
[2020-07-27 04:47] LABS: #Monocytes 1.3 10x3/uL (0.0-1.1); #Neutrophils 15.5 10x3/uL (1.5-8.4); %Basophils 0.2 % (0.0-2.0); %Eosinophils 0.1 % (0.0-6.0); %Lymphocytes 7.1 % (18.0-47.0); %Monocytes 6.9 % (0.0-10.0); %Neutrophils 84.3 % (40.0-75.0); Hemoglobin 9.9 g/dL (12.0-15.5); Mean Corpuscular HGB CONC 33.9 g/dL (32.0-36.0); Mean Corpuscular Hemoglobin 36.8 pg (27.0-33.0); Mean Corpuscular Volume 108.6 fl (81.6-98.3); Mean Platelet Volume 9.1 fl (7.4-10.4); Platelet Count 295 10x3/uL (150-450); RBC Distribution Width 16.7 % (11.5-14.5); Red Blood Cell (RBC) Count 2.69 10x6/uL (3.90-5.03); White Blood Cell (WBC) Count 18.4 10x3/uL (3.5-10.5)
[2020-07-27 04:55] LABS: ALT (SGPT) 37 U/L (8-55); AST (SGOT) 151 U/L (5-34); Albumin 2.6 g/dL (3.4-4.8); Alkaline Phosphatase 150 U/L (40-110); Anion Gap 15 mmol/L (10-20); BUN (Urea Nitrogen) 21 mg/dL (9.8-20.1); Calc. Creatinine Clearance 86 mL/min (70-130); Calcium 8.7 mg/dL (7.8-10.44); Carbon Dioxide 23 mmol/L (23-31); Chloride 106 mmol/L (98-107); Globulin 3.5 g/dL (2.4-3.5); Glucose 125 mg/dL (80-115); Protein, Total 6.1 g/dL (5.8-8.1); Sodium 140 mmol/L (136-145)
[2020-07-27 05:06] LABS: INR-International Normal Ratio 1.5; PTT 29.4 sec (22.0-33.0); Prothrombin Time 16.1 sec (9.5-12.1)
[2020-07-27] MEDS: Levothyroxine Sodium 50 MCG TAB PO SCH (05:45)
[2020-07-27 05:58] LABS: Platelet Morphology Comment Appears Adequate
[2020-07-27 05:59] LABS: Anisocytosis SLIGHT = 6-15 cells (100X) (0-5/hpf); Target Cells SLIGHT = 2-5 cells (100X) (0-1/hpf)
[2020-07-27] MEDS: prednisoLONE 15 MG/5 ML UDCUP PO SCH (09:02)
[2020-07-27] MEDS: Polyethylene Glycol 3350 17 GM Packet PO SCH (09:02)
[2020-07-27] MEDS: Magnesium Oxide 400 MG TAB PO SCH ×2 (09:02→20:13)
[2020-07-27] MEDS: Furosemide 20 MG TAB PO SCH (09:02)
[2020-07-27] MEDS: Folic Acid 1 MG TAB PO SCH (09:02)
[2020-07-27] MEDS: Sodium Bicarbonate Tab 325 MG TAB PO SCH ×3 (09:02→20:14)
[2020-07-27] MEDS: Thiamine 100 MG TAB PO SCH (09:02)
[2020-07-27] MEDS: Acetaminophen 325 MG TAB PO PRN (14:14)
[2020-07-27 16:36] LABS: Smooth Muscle Total ABS 11 Units (0-19)
[2020-07-27] MEDS: Pantoprazole 40 MG VIAL IVP SCH (20:13)
[2020-07-28] MEDS ORDERED: Lorazepam 2 MG/ML VIAL SLOW IVP SCH (00:30)
[2020-07-28] MEDS: Levothyroxine Sodium 50 MCG TAB PO SCH (05:31)
[2020-07-28] MEDS: chlordiazePOXIDE HCl 25 MG CAP PO SCH ×3 (05:31→22:09)
[2020-07-28 05:41] LABS: #Monocytes 1.2 10x3/uL (0.0-1.1); #Neutrophils 14.3 10x3/uL (1.5-8.4); %Basophils 0.1 % (0.0-2.0); %Eosinophils 0.1 % (0.0-6.0); %Lymphocytes 9.2 % (18.0-47.0); Hemoglobin 10.2 g/dL (12.0-15.5); Mean Corpuscular HGB CONC 34.2 g/dL (32.0-36.0); Mean Corpuscular Hemoglobin 38.3 pg (27.0-33.0); Platelet Count 291 10x3/uL (150-450); RBC Distribution Width 16.7 % (11.5-14.5); Red Blood Cell (RBC) Count 2.66 10x6/uL (3.90-5.03); White Blood Cell (WBC) Count 17.2 10x3/uL (3.5-10.5)
[2020-07-28 05:57] LABS: INR-International Normal Ratio 1.4; PTT 28.2 sec (22.0-33.0); Prothrombin Time 15.6 sec (9.5-12.1)
[2020-07-28 06:01] LABS: ALT (SGPT) 46 U/L (8-55); AST (SGOT) 186 U/L (5-34); Albumin 2.6 g/dL (3.4-4.8); Alkaline Phosphatase 148 U/L (40-110); Anion Gap 13 mmol/L (10-20); BUN (Urea Nitrogen) 22 mg/dL (9.8-20.1); Bilirubin, Total 15.8 mg/dL (0.2-1.2); Calc. Creatinine Clearance 92 mL/min (70-130); Calcium 9.2 mg/dL (7.8-10.44); Carbon Dioxide 23 mmol/L (23-31); Chloride 108 mmol/L (98-107); Globulin 3.4 g/dL (2.4-3.5); Glucose 85 mg/dL (80-115); Sodium 140 mmol/L (136-145)
[2020-07-28 06:07] LABS: Platelet Morphology Comment Appears Adequate
[2020-07-28 06:08] LABS: Hypochromia SLIGHT = 6-15 cells (100X) (0-5/hpf); Macrocytosis MODERATE=16-30 cells (100X) (0-5/hpf)
[2020-07-28 06:09] LABS: Anisocytosis SLIGHT = 6-15 cells (100X) (0-5/hpf); Target Cells SLIGHT = 2-5 cells (100X) (0-1/hpf)
[2020-07-28] MEDS: Thiamine 100 MG TAB PO SCH (09:55)
[2020-07-28] MEDS: Furosemide 20 MG TAB PO SCH (10:00)
[2020-07-28] MEDS: prednisoLONE 15 MG/5 ML UDCUP PO SCH (10:38)
[2020-07-28] MEDS: Polyethylene Glycol 3350 17 GM Packet PO SCH (10:39)
[2020-07-28] MEDS: Folic Acid 1 MG TAB PO SCH (10:39)
[2020-07-28] MEDS: Sodium Bicarbonate Tab 325 MG TAB PO SCH ×3 (10:44→22:08)
[2020-07-28] MEDS: Magnesium Oxide 400 MG TAB PO SCH ×2 (10:45→22:09)
[2020-07-28] MEDS: Pantoprazole 40 MG VIAL IVP SCH (22:09)
[2020-07-29] MEDS: chlordiazePOXIDE HCl 25 MG CAP PO SCH (05:21)
[2020-07-29] MEDS: Levothyroxine Sodium 50 MCG TAB PO SCH (05:21)
[2020-07-29 06:11] LABS: #Neutrophils 15.1 10x3/uL (1.5-8.4); %Basophils 0.2 % (0.0-2.0); %Lymphocytes 6.8 % (18.0-47.0); %Monocytes 5.5 % (0.0-10.0); %Neutrophils 86.8 % (40.0-75.0); Hemoglobin 10.3 g/dL (12.0-15.5); Mean Corpuscular HGB CONC 34.1 g/dL (32.0-36.0); Mean Corpuscular Hemoglobin 37.3 pg (27.0-33.0); Mean Corpuscular Volume 109.4 fl (81.6-98.3); Platelet Count 249 10x3/uL (150-450); RBC Distribution Width 16.4 % (11.5-14.5); Red Blood Cell (RBC) Count 2.76 10x6/uL (3.90-5.03); White Blood Cell (WBC) Count 17.4 10x3/uL (3.5-10.5)
[2020-07-29 06:17] LABS: ALT (SGPT) 59 U/L (8-55); AST (SGOT) 208 U/L (5-34); Albumin 2.7 g/dL (3.4-4.8); Alkaline Phosphatase 145 U/L (40-110); Anion Gap 14 mmol/L (10-20); BUN (Urea Nitrogen) 23 mg/dL (9.8-20.1); Bilirubin, Total 14.8 mg/dL (0.2-1.2); Calc. Creatinine Clearance 92 mL/min (70-130); Calcium 8.9 mg/dL (7.8-10.44); Carbon Dioxide 22 mmol/L (23-31); Chloride 109 mmol/L (98-107); Globulin 3.5 g/dL (2.4-3.5); Glucose 109 mg/dL (80-115); Magnesium 2.3 mg/dL (1.6-2.6); Potassium 3.9 mmol/L (3.5-5.1); Protein, Total 6.2 g/dL (5.8-8.1); Sodium 141 mmol/L (136-145)
[2020-07-29 06:24] LABS: INR-International Normal Ratio 1.4; PTT 26.9 sec (22.0-33.0); Prothrombin Time 15.6 sec (9.5-12.1)
[2020-07-29] MEDS ORDERED: chlordiazePOXIDE HCl 5 MG CAP PO SCH (08:45)
[2020-07-29] MEDS: Sodium Bicarbonate Tab 325 MG TAB PO SCH ×3 (08:49→21:51)
[2020-07-29] MEDS: Furosemide 20 MG TAB PO SCH (08:49)
[2020-07-29] MEDS: Magnesium Oxide 400 MG TAB PO SCH ×2 (08:49→21:51)
[2020-07-29] MEDS: Thiamine 100 MG TAB PO SCH (08:50)
[2020-07-29] MEDS: prednisoLONE 15 MG/5 ML UDCUP PO SCH (08:51)
[2020-07-29] MEDS: Folic Acid 1 MG TAB PO SCH (08:52)
[2020-07-29] MEDS: Polyethylene Glycol 3350 17 GM Packet PO SCH (08:52)
[2020-07-29 13:11] LABS: Hep B Surface AG-Rflx Sendout Negative (Negative); Hepatitis B Core Total Negative (Negative); Hepatitis B Surface AB-Sendout Non Reactive (.)
[2020-07-29] MEDS: chlordiazePOXIDE HCl 5 MG CAP PO SCH ×2 (14:06→21:51)
[2020-07-29 16:11] LABS: Bilirubin 6 (Negative); Blood, Urine 10 (Negative); Clarity Clear (Clear); Glucose, Urine (Dipstick) Normal (Negative); Ketone, Urine 5 mg/dL (Negative); Leukocyte 100 (Negative); Nitrite Negative (Negative); Protein, Urine (Dipstick) Negative (Neg-Trace); pH, Urine 6.5 (5.0-9.0)
[2020-07-29 16:22] LABS: Bacteria/HPF Rare-Few HPF (None Seen); RBC/HPF 0-3 HPF (0-3); Squamous Epithelial 0-3 HPF (0-3); WBC/HPF 0-3 HPF (0-3)
[2020-07-30] MEDS: Levothyroxine Sodium 50 MCG TAB PO SCH (06:55)
[2020-07-30] MEDS: chlordiazePOXIDE HCl 5 MG CAP PO SCH ×3 (06:55→21:11)
[2020-07-30] MEDS: Furosemide 20 MG TAB PO SCH (07:57)
[2020-07-30] MEDS: Folic Acid 1 MG TAB PO SCH (07:58)
[2020-07-30] MEDS: Polyethylene Glycol 3350 17 GM Packet PO SCH (07:58)
[2020-07-30] MEDS: Sodium Bicarbonate Tab 325 MG TAB PO SCH ×3 (07:58→20:38)
[2020-07-30] MEDS: Thiamine 100 MG TAB PO SCH (07:58)
[2020-07-30] MEDS: Magnesium Oxide 400 MG TAB PO SCH ×2 (07:58→20:38)
[2020-07-30] MEDS: prednisoLONE 15 MG/5 ML UDCUP PO SCH (07:58)
[2020-07-31 06:01] LABS: ALT (SGPT) 78 U/L (8-55); AST (SGOT) 207 U/L (5-34); Alkaline Phosphatase 163 U/L (40-110); Anion Gap 15 mmol/L (10-20); BUN (Urea Nitrogen) 27 mg/dL (9.8-20.1); Bilirubin, Total 13.5 mg/dL (0.2-1.2); CRP (Inflammatory) 3.16 mg/dL (= or < 0.5); Calc. Creatinine Clearance 80 mL/min (70-130); Calcium 9.2 mg/dL (7.8-10.44); Carbon Dioxide 23 mmol/L (23-31); Chloride 107 mmol/L (98-107); Globulin 3.7 g/dL (2.4-3.5); Glucose 90 mg/dL (80-115); Magnesium 2.3 mg/dL (1.6-2.6); Potassium 4.1 mmol/L (3.5-5.1); Protein, Total 6.7 g/dL (5.8-8.1); Sodium 141 mmol/L (136-145)
[2020-07-31] MEDS: Levothyroxine Sodium 50 MCG TAB PO SCH (06:17)
[2020-07-31] MEDS: chlordiazePOXIDE HCl 5 MG CAP PO SCH ×3 (06:17→21:18)
[2020-07-31 06:28] LABS: Hemoglobin 11.2 g/dL (12.0-15.5); MDiff Complete? YES; Mean Corpuscular HGB CONC 32.8 g/dL (32.0-36.0); Mean Corpuscular Hemoglobin 36.6 pg (27.0-33.0); Mean Corpuscular Volume 111.4 fl (81.6-98.3); Mean Platelet Volume 9.1 fl (7.4-10.4); Platelet Count 276 10x3/uL (150-450); RBC Distribution Width 15.9 % (11.5-14.5); Red Blood Cell (RBC) Count 3.06 10x6/uL (3.90-5.03); White Blood Cell (WBC) Count 22.6 10x3/uL (3.5-10.5)
[2020-07-31 06:30] LABS: Band 5 % (5-11); Eosinophils 1 % (0-10); Lymphocytes 10 % (21-51); Metamyelocyte 1 % (0-0); Monocytes 5 % (0-10); Neutrophil 78 % (42-75)
[2020-07-31 06:32] LABS: Macrocytosis SLIGHT = 6-15 cells (100X) (0-5/hpf); Platelet Clumps SLIGHT
[2020-07-31] MEDS: prednisoLONE 15 MG/5 ML UDCUP PO SCH (09:08)
[2020-07-31] MEDS: Folic Acid 1 MG TAB PO SCH (09:09)
[2020-07-31] MEDS: Thiamine 100 MG TAB PO SCH (09:09)
[2020-07-31] MEDS: Polyethylene Glycol 3350 17 GM Packet PO SCH (09:09)
[2020-07-31] MEDS: Magnesium Oxide 400 MG TAB PO SCH ×2 (09:10→21:17)
[2020-07-31] MEDS: Sodium Bicarbonate Tab 325 MG TAB PO SCH ×3 (09:10→21:17)
[2020-07-31] MEDS: Furosemide 20 MG TAB PO SCH (09:10)
[2020-07-31] MEDS: Acetaminophen 325 MG TAB PO PRN (21:18)
[2020-08-01] MEDS: Levothyroxine Sodium 50 MCG TAB PO SCH (05:33)
[2020-08-01] MEDS: chlordiazePOXIDE HCl 5 MG CAP PO SCH ×3 (05:33→22:33)
[2020-08-01] MEDS: Magnesium Oxide 400 MG TAB PO SCH ×2 (09:13→22:31)
[2020-08-01] MEDS: Furosemide 20 MG TAB PO SCH (09:13)
[2020-08-01] MEDS: Folic Acid 1 MG TAB PO SCH (09:13)
[2020-08-01] MEDS: Sodium Bicarbonate Tab 325 MG TAB PO SCH ×3 (09:14→22:31)
[2020-08-01] MEDS: Thiamine 100 MG TAB PO SCH (09:14)
[2020-08-01] MEDS: Polyethylene Glycol 3350 17 GM Packet PO SCH (09:14)
[2020-08-01] MEDS: prednisoLONE 15 MG/5 ML UDCUP PO SCH (09:20)
[2020-08-01 10:05] VITALS: BMI 29.9
[2020-08-02] MEDS: Levothyroxine Sodium 50 MCG TAB PO SCH (05:24)
[2020-08-02] MEDS: chlordiazePOXIDE HCl 5 MG CAP PO SCH ×2 (05:24→15:15)
[2020-08-02] MEDS: Sodium Bicarbonate Tab 325 MG TAB PO SCH ×2 (10:24→15:15)
[2020-08-02] MEDS: Magnesium Oxide 400 MG TAB PO SCH (10:24)
[2020-08-02] MEDS: Folic Acid 1 MG TAB PO SCH (10:24)
[2020-08-02] MEDS: Furosemide 20 MG TAB PO SCH (10:24)
[2020-08-02] MEDS: prednisoLONE 15 MG/5 ML UDCUP PO SCH (10:24)
[2020-08-02] MEDS: Thiamine 100 MG TAB PO SCH (10:24)
[2020-08-02] MEDS: Polyethylene Glycol 3350 17 GM Packet PO SCH (10:25)
[2020-08-02 11:54] VITALS: TEMP 99.1
[2020-08-02 15:08] VITALS: BP 106/64
== END 2020-08-02 17:53 | disposition home health service (06) | DRG 897 ==
LOC: CSHERS 18:55 → EEVIPCON 21:58 → CSHTELE 21:58
PROVIDERS: ADMIT Family Medicine; ATTEND Hospitalist
DX: F10.239 Alcohol dependence with withdrawal, unspecified (principal); E87.2 Acidosis; E46 Unspecified protein-calorie malnutrition; N39.0 Urinary tract infection, site not specified; E87.1 Hypo-osmolality and hyponatremia; K70.31 Alcoholic cirrhosis of liver with ascites; K70.11 Alcoholic hepatitis with ascites; Z20.822 Contact with and (suspected) exposure to COVID-19; T79.6XXA Traumatic ischemia of muscle, initial encounter; E03.9 Hypothyroidism, unspecified; Z83.3 Family history of diabetes mellitus; K70.9 Alcoholic liver disease, unspecified; E87.6 Hypokalemia; W19.XXXA Unspecified fall, initial encounter; D69.6 Thrombocytopenia, unspecified; D53.9 Nutritional anemia, unspecified; Z79.82 Long term (current) use of aspirin; Z79.890 Hormone replacement therapy; E86.0 Dehydration; E88.89 Other specified metabolic disorders; B96.20 Unspecified Escherichia coli [E. coli] as the cause of diseases classified elsewhere; E83.42 Hypomagnesemia; R53.81 Other malaise; R10.2 Pelvic and perineal pain; E80.6 Other disorders of bilirubin metabolism; G25.0 Essential tremor
CPT/HCPCS: 0240U; 36415; 71045; 74018; 74176; 76705; 80048; 80053; 80074; 80076; 80306; 80307; 81001; 81003; 81015; 82010; 82140; 82247; 82550; 82607; 82728; 82746; 83516; 83605; 83735; 84439; 84443; 84481; 85025; 85610; 85730; 86038; 86140; 86225; 86235; 86704; 86705; 86706; 86707; 86803; 87040; 87077; 87086; 87186; 87340; 87350; 93005; 93975; 94760; 96374; C9113; J0696; J1940; J2060; J2405; J3411; J3475; J3480; J3490; J7042; J7510; Q0162

== ENCOUNTER 2022-02-17 09:50 | Inpatient (IN) | payer OTHER ==
[2022-02-17 12:01] LABS: #Monocytes 0.5 10x3/uL (0.0-1.1); #Neutrophils 2.7 10x3/uL (1.5-8.4); %Basophils 0.7 % (0.0-2.0); %Eosinophils 0.7 % (0.0-6.0); %Lymphocytes 21.7 % (18.0-47.0); %Monocytes 12.3 % (0.0-10.0); %Neutrophils 63.9 % (40.0-75.0); Hemoglobin 6.7 g/dL (12.0-15.5); Mean Corpuscular HGB CONC 32.7 g/dL (32.0-36.0); Mean Corpuscular Hemoglobin 30.7 pg (27.0-33.0); Mean Platelet Volume 10.5 fl (7.4-10.4); Platelet Count 29 10x3/uL (150-450); RBC Distribution Width 16.3 % (11.5-14.5); Red Blood Cell (RBC) Count 2.18 10x6/uL (3.90-5.03); White Blood Cell (WBC) Count 4.2 10x3/uL (3.5-10.5)
[2022-02-17 12:05] LABS: INR-International Normal Ratio 1.5; PTT 27.4 sec (22.0-33.0); Prothrombin Time 15.6 sec (9.5-12.1)
[2022-02-17] MEDS ORDERED: Ondansetron ODT 4 MG TAB ONE (12:08)
[2022-02-17 12:09] LABS: ALT (SGPT) 30 U/L (8-55); AST (SGOT) 99 U/L (5-34); Acetaminophen Less than 10.0 mcg/mL (10.0-30.0); Albumin 3.8 g/dL (3.4-4.8); Alcohol Less than 10 mg/dL (Less than 10); Alkaline Phosphatase 68 U/L (40-110); Anion Gap 13 mmol/L (10-20); BUN (Urea Nitrogen) 16 mg/dL (9.8-20.1); Calc. Creatinine Clearance 0 mL/min (70-130); Carbon Dioxide 26 mmol/L (23-31); Chloride 101 mmol/L (98-107); Estimated GFR 70; Globulin 2.7 g/dL (2.4-3.5); Glucose 93 mg/dL (80-115); Potassium 3.4 mmol/L (3.5-5.1); Protein, Total 6.5 g/dL (5.8-8.1); Salicylate Less than 8.0 mg/dL (15.0-30.0); Sodium 137 mmol/L (136-145)
[2022-02-17 12:25] LABS: Anisocytosis SLIGHT = 6-15 cells (100X) (0-5/hpf); Ovalocytes SLIGHT = 2-5 cells (100X) (0-1/hpf)
[2022-02-17 12:26] LABS: Platelet Morphology Comment Appears Decreased
[2022-02-17 12:32] LABS: Reflex for Review?? YES
[2022-02-17] MEDS ORDERED: Ondansetron PF 4 MG/2 ML Vial IVP PRN (12:54)
[2022-02-17] MEDS ORDERED: Ketorolac Tromethamine 30 MG/ML VIAL ONE (13:08)
[2022-02-17] MEDS ORDERED: Lorazepam 2 MG/ML VIAL IM PRN (13:54)
[2022-02-17] MEDS ORDERED: Lorazepam 1 MG TAB PO PRN (13:54)
[2022-02-17] MEDS ORDERED: Electrolyte Replacement Protocol 1 EACH FS SCH (14:00)
[2022-02-17 15:14] LABS: Bilirubin, Direct 2.1 mg/dL (0.1-0.3)
[2022-02-17 15:15] LABS: Phosphorus 1.3 mg/dL (2.3-4.7)
[2022-02-17 15:35] LABS: Syphilis Antibody Nonreactive (Nonreactive); Syphilis Antibody Index 0.05 S/CO (<1.00 Non-Reactive)
[2022-02-17] MEDS ORDERED: Magnesium 2 GM/50 ML(in water) 2 GM in Premix Bag 1 BAG IVPB SCH (16:00)
[2022-02-17 16:41] LABS: #Monocytes 0.5 10x3/uL (0.0-1.1); #Neutrophils 2.8 10x3/uL (1.5-8.4); %Eosinophils 0.5 % (0.0-6.0); %Lymphocytes 18.3 % (18.0-47.0); %Monocytes 11.9 % (0.0-10.0); %Neutrophils 67.6 % (40.0-75.0); Hemoglobin 7.2 g/dL (12.0-15.5); Mean Corpuscular HGB CONC 32.4 g/dL (32.0-36.0); Mean Corpuscular Volume 92.5 fl (81.6-98.3); Mean Platelet Volume 9.7 fl (7.4-10.4); Platelet Count 29 10x3/uL (150-450); RBC Distribution Width 16.5 % (11.5-14.5); White Blood Cell (WBC) Count 4.2 10x3/uL (3.5-10.5)
[2022-02-17] MEDS ORDERED: Lorazepam 1 MG TAB ONE (18:00)
[2022-02-17] MEDS ORDERED: Acetaminophen 325 MG TAB ONE (18:01)
[2022-02-17] MEDS ORDERED: Magnesium 2 GM/50 ML BAG (IN WATER) ONE ×2 (18:01→21:09)
[2022-02-17] MEDS ORDERED: Thiamine HCl 200 MG/2 ML VIAL ONE (18:01)
[2022-02-17] MEDS: Sodium Chloride 0.9% 1,000 ML IV SCH (18:16)
[2022-02-17] MEDS: Lorazepam 1 MG TAB PO SCH (18:17)
[2022-02-17] MEDS: Thiamine HCl 200 MG/2 ML VIAL SLOW IVP SCH (18:18)
[2022-02-17] MEDS: PHOS-NAK 1 PKT PACK PO SCH (19:15)
[2022-02-17] MEDS: Magnesium 2 GM/50 ML(in water) 2 GM in Premix Bag 1 BAG IVPB SCH ×2 (19:18→21:12)
[2022-02-17 20:02] LABS: SARS-CoV-2 NAA Rapid Test Not Detected (NotDetected)
[2022-02-18] MEDS ORDERED: Lorazepam 1 MG TAB ONE ×3 (00:04→12:03)
[2022-02-18] MEDS: Lorazepam 1 MG TAB PO SCH ×5 (00:45→20:57)
[2022-02-18] MEDS: PHOS-NAK 1 PKT PACK PO SCH ×5 (00:56→12:49)
[2022-02-18 04:23] LABS: #Eosinphils 0.1 10x3/uL (0.0-0.5); #Monocytes 0.3 10x3/uL (0.0-1.1); #Neutrophils 2.1 10x3/uL (1.5-8.4); %Basophils 0.6 % (0.0-2.0); %Eosinophils 1.5 % (0.0-6.0); %Lymphocytes 23.9 % (18.0-47.0); %Monocytes 9.5 % (0.0-10.0); %Neutrophils 63.9 % (40.0-75.0); Hemoglobin 7.5 g/dL (12.0-15.5); Mean Corpuscular HGB CONC 32.2 g/dL (32.0-36.0); Mean Corpuscular Hemoglobin 29.6 pg (27.0-33.0); Mean Corpuscular Volume 92.1 fl (81.6-98.3); Platelet Count 43 10x3/uL (150-450); RBC Distribution Width 17.4 % (11.5-14.5); Red Blood Cell (RBC) Count 2.53 10x6/uL (3.90-5.03); White Blood Cell (WBC) Count 3.3 10x3/uL (3.5-10.5)
[2022-02-18 04:35] LABS: ALT (SGPT) 23 U/L (8-55); AST (SGOT) 84 U/L (5-34); Albumin 3.4 g/dL (3.4-4.8); Alkaline Phosphatase 71 U/L (40-110); Anion Gap 14 mmol/L (10-20); BUN (Urea Nitrogen) 15 mg/dL (9.8-20.1); Bilirubin, Total 4.3 mg/dL (0.2-1.2); Calc. Creatinine Clearance 0 mL/min (70-130); Calcium 7.7 mg/dL (7.8-10.44); Carbon Dioxide 23 mmol/L (23-31); Chloride 105 mmol/L (98-107); Estimated GFR 77; Globulin 2.5 g/dL (2.4-3.5); Glucose 83 mg/dL (80-115); Phosphorus 1.8 mg/dL (2.3-4.7); Potassium 3.3 mmol/L (3.5-5.1); Protein, Total 5.9 g/dL (5.8-8.1); Sodium 139 mmol/L (136-145)
[2022-02-18] MEDS ORDERED: Magnesium 2 GM/50 ML(in water) 2 GM in Premix Bag 1 BAG IVPB SCH (06:00)
[2022-02-18] MEDS ORDERED: Potassium Chloride 20 MEQ TAB PO SCH (06:00)
[2022-02-18] MEDS: Multivit, Therapeutic 1 TAB PO SCH (08:45)
[2022-02-18] MEDS: Folic Acid 1 MG TAB PO SCH (08:45)
[2022-02-18] MEDS ORDERED: Potassium Chloride 20 MEQ TAB ONE (08:48)
[2022-02-18] MEDS ORDERED: Magnesium 2 GM/50 ML BAG (IN WATER) ONE (08:49)
[2022-02-18] MEDS ORDERED: Folic Acid 1 MG TAB ONE (08:49)
[2022-02-18] MEDS: Sodium Chloride 0.9% 1,000 ML IV SCH ×3 (11:13→23:30)
[2022-02-18 12:44] VITALS: BMI 56.9
[2022-02-18] MEDS ORDERED: Lorazepam 1 MG TAB PO PRN (13:54)
[2022-02-18 16:41] LABS: Amphetamine Not Detected (NotDetected); Barbiturates Screen Not Detected (NotDetected); Benzodiazepine Screen Detected (NotDetected); Cocaine Metabolite Screen Not Detected (NotDetected); Methadone Not Detected (NotDetected); Methamphetamine Not Detected (NotDetected); Opiate Screen Not Detected (NotDetected); Oxycodone Screen Not Detected (NotDetected); Phencyclidine (PCP) Not Detected (NotDetected); THC/Cannabinoid Screen Not Detected (NotDetected); Tricyclic Screen Not Detected (NotDetected)
[2022-02-18] MEDS: Thiamine HCl 200 MG/2 ML VIAL SLOW IVP SCH (20:57)
[2022-02-19] MEDS: Lorazepam 1 MG TAB PO SCH ×2 (01:15→09:22)
[2022-02-19 06:35] LABS: ALT (SGPT) 24 U/L (8-55); AST (SGOT) 92 U/L (5-34); Albumin 3.8 g/dL (3.4-4.8); Alkaline Phosphatase 89 U/L (40-110); Anion Gap 14 mmol/L (10-20); BUN (Urea Nitrogen) 11 mg/dL (9.8-20.1); Bilirubin, Total 4.3 mg/dL (0.2-1.2); Calc. Creatinine Clearance 195 mL/min (70-130); Calcium 8.2 mg/dL (7.8-10.44); Carbon Dioxide 22 mmol/L (23-31); Chloride 107 mmol/L (98-107); Estimated GFR 87; Globulin 2.9 g/dL (2.4-3.5); Glucose 87 mg/dL (80-115); Magnesium 1.8 mg/dL (1.6-2.6); Phosphorus 1.4 mg/dL (2.3-4.7); Potassium 3.7 mmol/L (3.5-5.1); Protein, Total 6.7 g/dL (5.8-8.1); Sodium 139 mmol/L (136-145)
[2022-02-19 06:48] LABS: #Basophils 0.1 10x3/uL (0.0-0.2); #Eosinphils 0.1 10x3/uL (0.0-0.5); #Monocytes 0.4 10x3/uL (0.0-1.1); %Basophils 1.3 % (0.0-2.0); %Eosinophils 2.4 % (0.0-6.0); %Lymphocytes 21.6 % (18.0-47.0); %Monocytes 9.1 % (0.0-10.0); %Neutrophils 64.7 % (40.0-75.0); Mean Corpuscular HGB CONC 32.3 g/dL (32.0-36.0); Mean Corpuscular Hemoglobin 30.3 pg (27.0-33.0); Mean Corpuscular Volume 93.9 fl (81.6-98.3); Mean Platelet Volume 10.3 fl (7.4-10.4); Platelet Count 67 10x3/uL (150-450); Red Blood Cell (RBC) Count 2.64 10x6/uL (3.90-5.03); White Blood Cell (WBC) Count 4.6 10x3/uL (3.5-10.5)
[2022-02-19] MEDS ORDERED: Electrolyte Replacement Protocol 1 EACH FS ONE (07:14)
[2022-02-19] MEDS ORDERED: Electrolyte Replacement Protocol 1 EACH FS PRN (07:36)
[2022-02-19] MEDS ORDERED: Magnesium 2 GM/50 ML(in water) 2 GM in Premix Bag 1 BAG IVPB SCH (09:00)
[2022-02-19] MEDS: PHOS-NAK 1 PKT PACK PO SCH ×4 (09:21→20:36)
[2022-02-19] MEDS: Multivit, Therapeutic 1 TAB PO SCH (09:22)
[2022-02-19] MEDS: Folic Acid 1 MG TAB PO SCH (09:22)
[2022-02-19] MEDS: Acetaminophen 325 MG TAB PO PRN ×2 (13:28→18:22)
[2022-02-19] MEDS: Lorazepam 0.5 MG TAB PO SCH ×2 (13:28→20:36)
[2022-02-19] MEDS ORDERED: Lorazepam 1 MG TAB PO PRN (13:54)
[2022-02-19 14:04] LABS: Iron 40 ug/dL (50-170); Iron Binding Capacity, Total 400 mcg/dL (265-497)
[2022-02-19] MEDS: methylPREDNISolone Sod Succ 40 MG VIAL IVP SCH (14:30)
[2022-02-19] MEDS: HYDROcodone/Acetaminophen 5/325 mg Tablet PO PRN ×2 (14:30→21:16)
[2022-02-19 14:43] LABS: Bilirubin Neg (Negative); Blood, Urine 10 (Negative); CAUTI Indications for Culture Dysuria,urgency,freq; Clarity Clear (Clear); Glucose, Urine (Dipstick) Normal (Negative); Ketone, Urine Negative (Negative); Leukocyte Negative (Negative); Nitrite Negative (Negative); Protein, Urine (Dipstick) Negative (Neg-Trace)
[2022-02-19 14:44] LABS: Urine Culture Reflex No No
[2022-02-19 14:55] LABS: Bacteria/HPF None Seen HPF (None Seen); RBC/HPF 0-3 HPF (0-3); Squamous Epithelial 0-3 HPF (0-3); WBC/HPF 0-3 HPF (0-3)
[2022-02-19] MEDS: Sodium Chloride 0.9% 1,000 ML IV SCH (18:17)
[2022-02-19] MEDS: Thiamine HCl 200 MG/2 ML VIAL SLOW IVP SCH (21:16)
[2022-02-20] MEDS: Lorazepam 0.5 MG TAB PO SCH ×2 (02:35→08:49)
[2022-02-20] MEDS: methylPREDNISolone Sod Succ 40 MG VIAL IVP SCH ×2 (02:35→14:00)
[2022-02-20 04:07] LABS: #Monocytes 0.3 10x3/uL (0.0-1.1); #Neutrophils 2.1 10x3/uL (1.5-8.4); %Basophils 0.6 % (0.0-2.0); %Eosinophils 0.6 % (0.0-6.0); %Lymphocytes 20.1 % (18.0-47.0); %Monocytes 10.5 % (0.0-10.0); %Neutrophils 67.6 % (40.0-75.0); Hemoglobin 7.4 g/dL (12.0-15.5); Mean Corpuscular HGB CONC 33.2 g/dL (32.0-36.0); Mean Corpuscular Hemoglobin 30.8 pg (27.0-33.0); Mean Corpuscular Volume 92.9 fl (81.6-98.3); Mean Platelet Volume 9.8 fl (7.4-10.4); Platelet Count 55 10x3/uL (150-450); RBC Distribution Width 16.5 % (11.5-14.5); White Blood Cell (WBC) Count 3.1 10x3/uL (3.5-10.5)
[2022-02-20 04:21] LABS: ALT (SGPT) 23 U/L (8-55); AST (SGOT) 79 U/L (5-34); Albumin 3.5 g/dL (3.4-4.8); Alkaline Phosphatase 88 U/L (40-110); Anion Gap 12 mmol/L (10-20); BUN (Urea Nitrogen) 12 mg/dL (9.8-20.1); Bilirubin, Total 4.3 mg/dL (0.2-1.2); Calc. Creatinine Clearance 211 mL/min (70-130); Calcium 8.1 mg/dL (7.8-10.44); Carbon Dioxide 21 mmol/L (23-31); Chloride 110 mmol/L (98-107); Estimated GFR 95; Globulin 2.6 g/dL (2.4-3.5); Glucose 97 mg/dL (80-115); Magnesium 1.8 mg/dL (1.6-2.6); Potassium 4.2 mmol/L (3.5-5.1); Protein, Total 6.1 g/dL (5.8-8.1); Sodium 139 mmol/L (136-145)
[2022-02-20] MEDS: Sodium Chloride 0.9% 1,000 ML IV SCH (05:43)
[2022-02-20] MEDS: Lidocaine 2% 6 ML SYR TOP SCH ×3 (05:43→21:59)
[2022-02-20] MEDS: HYDROcodone/Acetaminophen 5/325 mg Tablet PO PRN ×3 (06:54→20:55)
[2022-02-20] MEDS ORDERED: Magnesium 2 GM/50 ML(in water) 2 GM in Premix Bag 1 BAG IVPB SCH (08:00)
[2022-02-20] MEDS: Folic Acid 1 MG TAB PO SCH (08:49)
[2022-02-20] MEDS: PHOS-NAK 1 PKT PACK PO SCH ×2 (08:50→14:00)
[2022-02-20] MEDS: Multivit, Therapeutic 1 TAB PO SCH (08:50)
[2022-02-20] MEDS ORDERED: Lidocaine 5% Patch TD SCH (09:00)
[2022-02-20] MEDS: Acetaminophen 325 MG TAB PO PRN (10:57)
[2022-02-20] MEDS: Ondansetron ODT 4 MG TAB PO PRN (10:58)
[2022-02-20] MEDS ORDERED: Lorazepam 0.5 MG TAB PO PRN (13:54)
[2022-02-20] MEDS ORDERED: Thiamine 100 MG TAB PO SCH (20:00)
[2022-02-20] MEDS ORDERED: Transdermal Patch Removal TOP SCH (21:00)
[2022-02-21] MEDS: Sodium Chloride 0.9% 1,000 ML IV SCH ×2 (00:05→08:23)
[2022-02-21] MEDS: methylPREDNISolone Sod Succ 40 MG VIAL IVP SCH (02:31)
[2022-02-21 04:17] LABS: ALT (SGPT) 22 U/L (8-55); AST (SGOT) 63 U/L (5-34); Albumin 3.4 g/dL (3.4-4.8); Alkaline Phosphatase 96 U/L (40-110); Anion Gap 14 mmol/L (10-20); BUN (Urea Nitrogen) 12 mg/dL (9.8-20.1); Bilirubin, Total 3.9 mg/dL (0.2-1.2); Calc. Creatinine Clearance 203 mL/min (70-130); Calcium 8.8 mg/dL (7.8-10.44); Carbon Dioxide 19 mmol/L (23-31); Chloride 110 mmol/L (98-107); Estimated GFR 91; Globulin 2.7 g/dL (2.4-3.5); Glucose 101 mg/dL (80-115); Phosphorus 2.5 mg/dL (2.3-4.7); Potassium 4.1 mmol/L (3.5-5.1); Protein, Total 6.1 g/dL (5.8-8.1); Sodium 139 mmol/L (136-145)
[2022-02-21 04:50] LABS: #Monocytes 0.4 10x3/uL (0.0-1.1); #Neutrophils 2.4 10x3/uL (1.5-8.4); %Basophils 0.8 % (0.0-2.0); %Eosinophils 1.1 % (0.0-6.0); %Lymphocytes 21.6 % (18.0-47.0); %Monocytes 10.3 % (0.0-10.0); %Neutrophils 65.7 % (40.0-75.0); Hemoglobin 7.5 g/dL (12.0-15.5); Mean Corpuscular HGB CONC 31.6 g/dL (32.0-36.0); Mean Corpuscular Hemoglobin 29.9 pg (27.0-33.0); Mean Corpuscular Volume 94.4 fl (81.6-98.3); Mean Platelet Volume 9.9 fl (7.4-10.4); Platelet Count 68 10x3/uL (150-450); Red Blood Cell (RBC) Count 2.51 10x6/uL (3.90-5.03); White Blood Cell (WBC) Count 3.7 10x3/uL (3.5-10.5)
[2022-02-21] MEDS ORDERED: Ferrous Sulfate 325 MG TAB PO SCH (08:00)
[2022-02-21] MEDS: Ondansetron ODT 4 MG TAB PO PRN (08:22)
[2022-02-21] MEDS: Folic Acid 1 MG TAB PO SCH (08:23)
[2022-02-21] MEDS: Multivit, Therapeutic 1 TAB PO SCH (08:23)
[2022-02-21 10:52] VITALS: BP 134/63; TEMP 98.5
== END 2022-02-21 11:10 | disposition home or self-care (01) | DRG 605 ==
LOC: CSHERS 09:50 → CSHERHOLD 17:48 → CSHTELE 02-18 12:29
PROVIDERS: ADMIT Family Medicine; ATTEND Nurse Practitioner Family
PROC: 30233N1 Transfusion of Nonautologous Red Blood Cells into Peripheral Vein, Percutaneous Approach (ICD-10-PCS; principal; 2022-02-17)
PROC: 6A550Z2 Pheresis of Platelets, Single (ICD-10-PCS; 2022-02-17)
DX: S70.12XA Contusion of left thigh, initial encounter (principal); W18.30XA Fall on same level, unspecified, initial encounter; Z20.822 Contact with and (suspected) exposure to COVID-19; F10.20 Alcohol dependence, uncomplicated; E03.9 Hypothyroidism, unspecified; F41.9 Anxiety disorder, unspecified; F32.A Depression, unspecified; D50.9 Iron deficiency anemia, unspecified; K74.60 Unspecified cirrhosis of liver; D69.6 Thrombocytopenia, unspecified; K29.20 Alcoholic gastritis without bleeding; Z79.899 Other long term (current) drug therapy; Z79.890 Hormone replacement therapy; Z88.8 Allergy status to other drugs, medicaments and biological substances; Z83.3 Family history of diabetes mellitus
CPT/HCPCS: 36415; 36430; 70450; 76705; 80053; 80306; 80307; 81001; 82248; 82274; 82728; 83540; 83550; 83735; 84100; 84443; 85025; 85060; 85610; 85730; 86780; 86850; 86900; 86901; 93880; 94760; 94762; 97139; J1885; J2405; J2920; J3411; J3475; J7050; P9016; P9035; Q0162

== ENCOUNTER 2024-10-20 08:13 | Inpatient (IN) | payer MEDICARE ==
[2024-10-20 09:02] LABS: #Basophils 0.04 10x3/uL (0.0-0.2); #Eosinophils 0.04 10x3/uL (0.0-0.5); #Monocytes 0.34 10x3/uL (0.0-1.1); #Neutrophils 2.75 10x3/uL (1.5-8.4); %Basophils 1.0 % (0.0-2.0); %Eosinophils 1.0 % (0.0-6.0); %Lymphocytes 15.6 % (18.0-47.0); %Monocytes 8.9 % (0.0-10.0); %Neutrophils 71.7 % (40.0-75.0); Hematocrit 35.1 % (34.9-44.5); Hemoglobin 12.2 g/dL (12.0-15.5); Mean Corpuscular Hemoglobin 38.5 pg (27.0-33.0); Mean Corpuscular Volume 110.7 fL (81.6-98.3); Red Blood Cell (RBC) Count 3.17 10x6/uL (3.90-5.03); White Blood Cell (WBC) Count 3.84 10x3/uL (3.5-10.5)
[2024-10-20 09:04] LABS: INR-International Normal Ratio 1.5; PTT 28.5 sec (22.0-33.0); Prothrombin Time 15.6 sec (9.5-12.1)
[2024-10-20 09:10] LABS: ALT (SGPT) 57 U/L (Less than 34); AST (SGOT) 248 U/L (11-34); Albumin 2.9 g/dL (3.1-4.5); Alkaline Phosphatase 98 U/L (40-110); Anion Gap 21 mmol/L (10-20); BUN (Urea Nitrogen) 5 mg/dL (9.8-20.1); Bilirubin, Total 16.1 mg/dL (0.3-1.2); Calc. Creatinine Clearance 0 mL/min (70-130); Calcium 8.4 mg/dL (7.8-10.44); Carbon Dioxide 21 mmol/L (23-31); Chloride 99 mmol/L (98-107); Globulin 3.9 g/dL (2.4-3.5); Glucose 89 mg/dL (80-115); Magnesium 1.5 mg/dL (1.6-2.6); Potassium 3.0 mmol/L (3.5-5.1); Sodium 138 mmol/L (136-145)
[2024-10-20 09:14] LABS: Troponin I Less than 0.010 ng/mL (< 0.028)
[2024-10-20] MEDS ORDERED: Potassium Bicarbonate/Cit Ac 20 MEQ TAB ONE (09:27)
[2024-10-20 09:28] LABS: Anisocytosis SLIGHT = 6-15 cells (100X) (0-5/hpf); Macrocytosis SLIGHT = 6-15 cells (100X) (0-5/hpf); Platelet Adequacy Comment Appears Decreased; Polychromasia SLIGHT = 2-3 cells (100X) (0-2/hpf)
[2024-10-20 09:29] LABS: Platelet Count 51 10x3/uL (130-400)
[2024-10-20 10:16] LABS: Free T4 (Free Thyroxine) 1.25 ng/dL (0.70-1.48)
[2024-10-20] MEDS ORDERED: Iopamidol 370 76% 100 ML VIAL ONE (11:04)
[2024-10-20] MEDS ORDERED: Calcium Carbonate 500 MG ChewTAB PO PRN (13:16)
[2024-10-20] MEDS ORDERED: Furosemide 40 MG (4 mL) VIAL SLOW IVP SCH (14:00)
[2024-10-20] MEDS ORDERED: Spironolactone 25 MG TAB PO SCH (14:15)
[2024-10-20] MEDS ORDERED: Electrolyte Replacement Protocol 1 EACH FS SCH (15:00)
[2024-10-20 15:28] LABS: Hep B Core IgM Index 0.12 S/CO (0-0.79)
[2024-10-20 15:29] LABS: Hep A IgM AB NONREACTIVE (NonReactive); Hep A IgM S/CO 0.19 S/CO (0-0.79); Hep B Surf Ag NONREACTIVE S/CO (NonReactive)
[2024-10-20] MEDS: Magnesium 2 GM/50 ML(in water) 2 GM in Premix 1 BAG IVPB SCH (15:35)
[2024-10-20] MEDS: Furosemide 20 MG TAB PO SCH (15:35)
[2024-10-20] MEDS: Ondansetron PF 4 MG/2 ML Vial IVP PRN (15:46)
[2024-10-20 17:07] LABS: Hep C IgG Ab NONREACTIVE S/CO (NonReactive); Hep C Index 0.16 S/CO (0-0.79)
[2024-10-20] MEDS ORDERED: Albumin 25% 25 GM (100 mL) BOT IVPB SCH (18:00)
[2024-10-20 18:48] LABS: Cocaine Metabolite Screen Negative (Negative); THC/Cannabinoid Screen PRELIM POSITIVE (Negative); Tricyclic Screen Negative (Negative)
[2024-10-20] MEDS: Melatonin 3 MG TAB PO PRN (21:40)
[2024-10-21 04:41] LABS: #Basophils Less than 0.03 10x3/uL (0.0-0.2); #Eosinophils 0.06 10x3/uL (0.0-0.5); #Monocytes 0.37 10x3/uL (0.0-1.1); #Neutrophils 3.28 10x3/uL (1.5-8.4); %Basophils 0.5 % (0.0-2.0); %Eosinophils 1.4 % (0.0-6.0); %Lymphocytes 11.0 % (18.0-47.0); %Monocytes 8.7 % (0.0-10.0); %Neutrophils 76.8 % (40.0-75.0); Hematocrit 33.8 % (34.9-44.5); Hemoglobin 11.6 g/dL (12.0-15.5); Mean Corpuscular Hemoglobin 38.3 pg (27.0-33.0); Mean Corpuscular Volume 111.6 fL (81.6-98.3); Red Blood Cell (RBC) Count 3.03 10x6/uL (3.90-5.03); White Blood Cell (WBC) Count 4.27 10x3/uL (3.5-10.5)
[2024-10-21 04:43] LABS: Platelet Count 44 10x3/uL (130-400)
[2024-10-21 04:52] LABS: ALT (SGPT) 55 U/L (Less than 34); AST (SGOT) 240 U/L (11-34); Albumin 2.7 g/dL (3.1-4.5); Alkaline Phosphatase 92 U/L (40-110); Anion Gap 18 mmol/L (10-20); BUN (Urea Nitrogen) 6 mg/dL (9.8-20.1); Bilirubin, Total 16.4 mg/dL (0.3-1.2); Calc. Creatinine Clearance 152 mL/min (70-130); Calcium 7.4 mg/dL (7.8-10.44); Carbon Dioxide 23 mmol/L (23-31); Chloride 98 mmol/L (98-107); Globulin 3.8 g/dL (2.4-3.5); Glucose 87 mg/dL (80-115); Potassium 3.8 mmol/L (3.5-5.1); Sodium 135 mmol/L (136-145)
[2024-10-21] MEDS ORDERED: Furosemide 40 MG TAB PO SCH (09:00)
[2024-10-21] MEDS ORDERED: Acetylcysteine 20% (200mg/mL) 15,000 MG in Dextrose 5% in Water 200 ML IV SCH (09:30)
[2024-10-21] MEDS: Spironolactone 25 MG TAB PO SCH ×2 (10:21→10:50)
[2024-10-21] MEDS: Pantoprazole 40 MG VIAL IVP SCH (10:22)
[2024-10-21] MEDS: Folic Acid 1 MG TAB PO SCH (10:22)
[2024-10-21] MEDS: Multivit, Therapeutic 1 TAB PO SCH (10:22)
[2024-10-21] MEDS: Enoxaparin 40 MG (0.4 mL) SYRINGE SC SCH (10:22)
[2024-10-21] MEDS: DEXTROSE 5% IV SCH (10:23)
[2024-10-21] MEDS: ACETYLCYSTEINE IV SCH (10:23)
[2024-10-21] MEDS: WATER IV SCH (10:23)
[2024-10-21] MEDS: Acetylcysteine 20% (200mg/mL) 5,000 MG in Dextrose 5% in Water 500 ML IV SCH (12:31)
[2024-10-21] MEDS: Furosemide 40 MG (4 mL) VIAL SLOW IVP SCH (15:29)
[2024-10-21] MEDS: Acetylcysteine 20% (200mg/mL) 10,000 MG in Dextrose 5% in Water 1,000 ML IV SCH (16:55)
[2024-10-21 19:10] LABS: Macrocytosis SLIGHT = 6-15 cells (100X) (0-5/hpf); Platelet Adequacy Comment Appears Decreased; Polychromasia SLIGHT = 2-3 cells (100X) (0-2/hpf)
[2024-10-21 19:11] LABS: Anisocytosis SLIGHT = 6-15 cells (100X) (0-5/hpf)
[2024-10-22 04:00] LABS: #Basophils Less than 0.03 10x3/uL (0.0-0.2); #Eosinophils 0.05 10x3/uL (0.0-0.5); #Monocytes 0.38 10x3/uL (0.0-1.1); #Neutrophils 2.78 10x3/uL (1.5-8.4); %Basophils 0.5 % (0.0-2.0); %Eosinophils 1.3 % (0.0-6.0); %Lymphocytes 15.4 % (18.0-47.0); %Monocytes 9.8 % (0.0-10.0); %Neutrophils 71.5 % (40.0-75.0); Hematocrit 33.0 % (34.9-44.5); Hemoglobin 11.3 g/dL (12.0-15.5); Mean Corpuscular Hemoglobin 37.7 pg (27.0-33.0); Mean Corpuscular Volume 110.0 fL (81.6-98.3); Red Blood Cell (RBC) Count 3.00 10x6/uL (3.90-5.03); White Blood Cell (WBC) Count 3.89 10x3/uL (3.5-10.5)
[2024-10-22 04:01] LABS: Platelet Count 44 10x3/uL (130-400)
[2024-10-22 04:07] LABS: ALT (SGPT) 49 U/L (Less than 34); AST (SGOT) 197 U/L (11-34); Albumin 2.4 g/dL (3.1-4.5); Alkaline Phosphatase 78 U/L (40-110); Anion Gap 15 mmol/L (10-20); BUN (Urea Nitrogen) 7 mg/dL (9.8-20.1); Bilirubin, Total 15.8 mg/dL (0.3-1.2); Calc. Creatinine Clearance 140 mL/min (70-130); Calcium 7.5 mg/dL (7.8-10.44); Carbon Dioxide 28 mmol/L (23-31); Chloride 94 mmol/L (98-107); Globulin 3.8 g/dL (2.4-3.5); Glucose 97 mg/dL (80-115); Magnesium 1.4 mg/dL (1.6-2.6); Potassium 2.9 mmol/L (3.5-5.1); Sodium 134 mmol/L (136-145)
[2024-10-22] MEDS ORDERED: Enoxaparin 40 MG (0.4 mL) SYRINGE SC SCH (09:00)
[2024-10-22] MEDS: Magnesium Sulfate/D5W 1 GM in Premix 1 BAG IVPB SCH (09:02)
[2024-10-22] MEDS: Potassium Phosphate 30 MMOL in Sodium Chloride 0.9% 250 ML 250 ML IVPB SCH (09:08)
[2024-10-22] MEDS: Acetylcysteine 20% (200mg/mL) 10,000 MG in Dextrose 5% in Water 1,000 ML IV SCH (11:11)
[2024-10-22] MEDS: Magnesium Sulfate/D5W 1 GM/100 ML BAG ONE ×2 (12:29→14:33)
[2024-10-22 20:33] LABS: Magnesium 1.8 mg/dL (1.6-2.6); Potassium 2.8 mmol/L (3.5-5.1)
[2024-10-22] MEDS: Magnesium 2 GM/50 ML(in water) 2 GM in Premix 1 BAG IVPB SCH (22:14)
[2024-10-22] MEDS: PHOS-NAK 1 PKT PACK PO SCH (22:14)
[2024-10-22] MEDS: Potassium Chloride 20 MEQ in Premix 1 BAG IVPB SCH (22:23)
[2024-10-23 03:47] LABS: #Basophils Less than 0.03 10x3/uL (0.0-0.2); #Eosinophils 0.04 10x3/uL (0.0-0.5); #Monocytes 0.33 10x3/uL (0.0-1.1); #Neutrophils 2.59 10x3/uL (1.5-8.4); %Basophils 0.6 % (0.0-2.0); %Eosinophils 1.1 % (0.0-6.0); %Lymphocytes 13.5 % (18.0-47.0); %Monocytes 9.5 % (0.0-10.0); %Neutrophils 74.2 % (40.0-75.0); Hematocrit 32.3 % (34.9-44.5); Hemoglobin 11.0 g/dL (12.0-15.5); Mean Corpuscular Hemoglobin 37.3 pg (27.0-33.0); Mean Corpuscular Volume 109.5 fL (81.6-98.3); Platelet Count 42 10x3/uL (130-400); Red Blood Cell (RBC) Count 2.95 10x6/uL (3.90-5.03); White Blood Cell (WBC) Count 3.49 10x3/uL (3.5-10.5)
[2024-10-23 04:04] LABS: ALT (SGPT) 48 U/L (Less than 34); AST (SGOT) 199 U/L (11-34); Albumin 2.4 g/dL (3.1-4.5); Alkaline Phosphatase 78 U/L (40-110); Anion Gap 18 mmol/L (10-20); BUN (Urea Nitrogen) 5 mg/dL (9.8-20.1); Bilirubin, Total 17.1 mg/dL (0.3-1.2); Calc. Creatinine Clearance 161 mL/min (70-130); Calcium 7.1 mg/dL (7.8-10.44); Carbon Dioxide 26 mmol/L (23-31); Chloride 94 mmol/L (98-107); Globulin 3.4 g/dL (2.4-3.5); Glucose 96 mg/dL (80-115); Magnesium 1.9 mg/dL (1.6-2.6); Potassium 3.5 mmol/L (3.5-5.1); Sodium 134 mmol/L (136-145)
[2024-10-23] MEDS: Magnesium 2 GM/50 ML(in water) 2 GM in Premix 1 BAG IVPB SCH (08:52)
[2024-10-23] MEDS: prednisoLONE 15 MG/5 ML UDCUP PO SCH (08:52)
[2024-10-23] MEDS: Furosemide 40 MG (4 mL) VIAL SLOW IVP SCH (08:53)
[2024-10-23] MEDS: Acetylcysteine 20% (200mg/mL) 10,000 MG in Dextrose 5% in Water 1,000 ML IV SCH (12:32)
[2024-10-23 13:35] LABS: Potassium 3.9 mmol/L (3.5-5.1)
[2024-10-23] MEDS: Thiamine 100 MG TAB PO SCH (15:28)
[2024-10-24 05:39] LABS: #Basophils Less than 0.03 10x3/uL (0.0-0.2); #Eosinophils Less than 0.03 10x3/uL (0.0-0.5); #Monocytes 0.40 10x3/uL (0.0-1.1); #Neutrophils 3.52 10x3/uL (1.5-8.4); %Basophils 0.2 % (0.0-2.0); %Eosinophils 0.4 % (0.0-6.0); %Lymphocytes 10.1 % (18.0-47.0); %Monocytes 9.0 % (0.0-10.0); %Neutrophils 79.2 % (40.0-75.0); Hematocrit 33.6 % (34.9-44.5); Hemoglobin 11.3 g/dL (12.0-15.5); Mean Corpuscular Hemoglobin 37.5 pg (27.0-33.0); Mean Corpuscular Volume 111.6 fL (81.6-98.3); Platelet Count 44 10x3/uL (130-400); Red Blood Cell (RBC) Count 3.01 10x6/uL (3.90-5.03); White Blood Cell (WBC) Count 4.45 10x3/uL (3.5-10.5)
[2024-10-24 06:18] LABS: ALT (SGPT) 57 U/L (Less than 34); AST (SGOT) 215 U/L (11-34); Albumin 2.4 g/dL (3.1-4.5); Alkaline Phosphatase 89 U/L (40-110); Anion Gap 13 mmol/L (10-20); BUN (Urea Nitrogen) 6 mg/dL (9.8-20.1); Bilirubin, Total 19.9 mg/dL (0.3-1.2); Calc. Creatinine Clearance 159 mL/min (70-130); Calcium 7.5 mg/dL (7.8-10.44); Carbon Dioxide 28 mmol/L (23-31); Chloride 93 mmol/L (98-107); Globulin 4.0 g/dL (2.4-3.5); Glucose 114 mg/dL (80-115); Magnesium 1.9 mg/dL (1.6-2.6); Potassium 3.8 mmol/L (3.5-5.1); Sodium 130 mmol/L (136-145)
[2024-10-24] MEDS: PHOS-NAK 1 PKT PACK PO SCH (08:44)
[2024-10-24] MEDS: Magnesium 2 GM/50 ML(in water) 2 GM in Premix 1 BAG IVPB SCH (08:44)
[2024-10-24] MEDS ORDERED: Sodium Bicarbonate 2.5 MEQ/5 ML SDV ONE (13:43)
[2024-10-24] MEDS: Acetaminophen 500 MG TAB PO PRN (20:53)
[2024-10-25 04:42] LABS: Magnesium 1.7 mg/dL (1.6-2.6)
[2024-10-25] MEDS: Magnesium 2 GM/50 ML(in water) 2 GM in Premix 1 BAG IVPB SCH (10:30)
[2024-10-25] MEDS: Lactulose 20 GM (30 mL) UDCUP PO SCH (18:37)
[2024-10-25 23:14] VITALS: BMI 41.0
[2024-10-26 04:04] LABS: #Basophils Less than 0.03 10x3/uL (0.0-0.2); #Eosinophils 0.05 10x3/uL (0.0-0.5); #Monocytes 0.53 10x3/uL (0.0-1.1); #Neutrophils 3.01 10x3/uL (1.5-8.4); %Basophils 0.5 % (0.0-2.0); %Eosinophils 1.1 % (0.0-6.0); %Lymphocytes 14.5 % (18.0-47.0); %Monocytes 12.0 % (0.0-10.0); %Neutrophils 68.1 % (40.0-75.0)
[2024-10-26 04:06] LABS: Hematocrit 35.0 % (34.9-44.5); Hemoglobin 12.3 g/dL (12.0-15.5); Mean Corpuscular Hemoglobin 38.2 pg (27.0-33.0); Mean Corpuscular Volume 108.7 fL (81.6-98.3); Platelet Count 76 10x3/uL (150-450); Red Blood Cell (RBC) Count 3.22 10x6/uL (3.90-5.03); White Blood Cell (WBC) Count 4.42 10x3/uL (3.5-10.5)
[2024-10-26 04:12] LABS: INR-International Normal Ratio 1.9; PTT 31.4 sec (22.0-33.0); Prothrombin Time 19.8 sec (9.5-12.1)
[2024-10-26 04:31] LABS: ALT (SGPT) 64 U/L (Less than 34); AST (SGOT) 216 U/L (11-34); Albumin 2.4 g/dL (3.1-4.5); Alkaline Phosphatase 98 U/L (40-110); Anion Gap 12 mmol/L (10-20); BUN (Urea Nitrogen) 9 mg/dL (9.8-20.1); Bilirubin, Total 21.5 mg/dL (0.3-1.2); Calc. Creatinine Clearance 148 mL/min (70-130); Calcium 7.9 mg/dL (7.8-10.44); Carbon Dioxide 25 mmol/L (23-31); Chloride 95 mmol/L (98-107); Glucose 93 mg/dL (80-115); Magnesium 1.7 mg/dL (1.6-2.6); Potassium 4.0 mmol/L (3.5-5.1); Sodium 128 mmol/L (136-145)
[2024-10-26] MEDS: Metoclopramide HCl 10 MG (2 mL) VIAL IVP PRN (04:38)
[2024-10-26 04:57] LABS: Bilirubin, Direct 14.8 mg/dL (0.1-0.3)
[2024-10-26] MEDS: Lactulose 20 GM (30 mL) UDCUP PO SCH (09:20)
[2024-10-26] MEDS: Magnesium 2 GM/50 ML(in water) 2 GM in Premix 1 BAG IVPB SCH (09:22)
[2024-10-27 05:20] LABS: Hematocrit 34.1 % (34.9-44.5); Hemoglobin 12.1 g/dL (12.0-15.5); Mean Corpuscular Hemoglobin 38.3 pg (27.0-33.0); Mean Corpuscular Volume 107.9 fL (81.6-98.3); Platelet Count 82 10x3/uL (150-450); Red Blood Cell (RBC) Count 3.16 10x6/uL (3.90-5.03); White Blood Cell (WBC) Count 4.70 10x3/uL (3.5-10.5)
[2024-10-27 05:21] LABS: #Basophils 0.03 10x3/uL (0.0-0.2); #Eosinophils 0.06 10x3/uL (0.0-0.5); #Monocytes 0.59 10x3/uL (0.0-1.1); #Neutrophils 3.04 10x3/uL (1.5-8.4); %Basophils 0.6 % (0.0-2.0); %Eosinophils 1.3 % (0.0-6.0); %Lymphocytes 16.6 % (18.0-47.0); %Monocytes 12.6 % (0.0-10.0); %Neutrophils 64.6 % (40.0-75.0)
[2024-10-27 05:34] LABS: ALT (SGPT) 65 U/L (Less than 34); AST (SGOT) 208 U/L (11-34); Albumin 2.3 g/dL (3.1-4.5); Alkaline Phosphatase 99 U/L (40-110); Anion Gap 11 mmol/L (10-20); BUN (Urea Nitrogen) 11 mg/dL (9.8-20.1); Bilirubin, Total 22.9 mg/dL (0.3-1.2); Calc. Creatinine Clearance 128 mL/min (70-130); Calcium 8.2 mg/dL (7.8-10.44); Carbon Dioxide 25 mmol/L (23-31); Chloride 95 mmol/L (98-107); Glucose 76 mg/dL (80-115); Magnesium 1.8 mg/dL (1.6-2.6); Potassium 3.9 mmol/L (3.5-5.1); Sodium 127 mmol/L (136-145)
[2024-10-27 05:58] LABS: Bilirubin, Direct 14.8 mg/dL (0.1-0.3)
[2024-10-27] MEDS: Magnesium 2 GM/50 ML(in water) 2 GM in Premix 1 BAG IVPB SCH (09:41)
[2024-10-28 05:03] LABS: Platelet Count 92 10x3/uL (150-450)
[2024-10-28 05:05] LABS: Hematocrit 34.3 % (34.9-44.5); Hemoglobin 12.2 g/dL (12.0-15.5); Mean Corpuscular Hemoglobin 38.1 pg (27.0-33.0); Mean Corpuscular Volume 107.2 fL (81.6-98.3); Red Blood Cell (RBC) Count 3.20 10x6/uL (3.90-5.03); White Blood Cell (WBC) Count 5.72 10x3/uL (3.5-10.5)
[2024-10-28 05:09] LABS: #Basophils 0.05 10x3/uL (0.0-0.2); #Eosinophils 0.05 10x3/uL (0.0-0.5); #Monocytes 0.73 10x3/uL (0.0-1.1); #Neutrophils 3.96 10x3/uL (1.5-8.4); %Basophils 0.9 % (0.0-2.0); %Eosinophils 0.9 % (0.0-6.0); %Lymphocytes 12.4 % (18.0-47.0); %Monocytes 12.8 % (0.0-10.0); %Neutrophils 69.2 % (40.0-75.0)
[2024-10-28 05:56] LABS: Bilirubin, Total 24.1 mg/dL (0.3-1.2)
[2024-10-28 05:59] LABS: ALT (SGPT) 65 U/L (Less than 34); AST (SGOT) 197 U/L (11-34); Albumin 2.3 g/dL (3.1-4.5); Alkaline Phosphatase 113 U/L (40-110); Anion Gap 13 mmol/L (10-20); BUN (Urea Nitrogen) 12 mg/dL (9.8-20.1); Calc. Creatinine Clearance 114 mL/min (70-130); Calcium 8.5 mg/dL (7.8-10.44); Carbon Dioxide 24 mmol/L (23-31); Chloride 94 mmol/L (98-107); Glucose 84 mg/dL (80-115); Magnesium 1.9 mg/dL (1.6-2.6); Potassium 4.0 mmol/L (3.5-5.1); Sodium 127 mmol/L (136-145)
[2024-10-28 06:16] LABS: Bilirubin, Direct 16.8 mg/dL (0.1-0.3)
[2024-10-28] MEDS: Magnesium 2 GM/50 ML(in water) 2 GM in Premix 1 BAG IVPB SCH (08:29)
[2024-10-28] MEDS: Albumin 25% 25 GM (100 mL) BOT IVPB SCH (17:45)
[2024-10-29 04:41] LABS: #Basophils 0.05 10x3/uL (0.0-0.2); #Eosinophils 0.08 10x3/uL (0.0-0.5); #Monocytes 0.57 10x3/uL (0.0-1.1); #Neutrophils 4.35 10x3/uL (1.5-8.4); %Basophils 0.8 % (0.0-2.0); %Eosinophils 1.3 % (0.0-6.0); %Lymphocytes 13.1 % (18.0-47.0); %Monocytes 9.4 % (0.0-10.0); %Neutrophils 71.9 % (40.0-75.0)
[2024-10-29 04:42] LABS: Platelet Count 94 10x3/uL (150-450)
[2024-10-29 04:43] LABS: Hematocrit 33.6 % (34.9-44.5); Hemoglobin 11.7 g/dL (12.0-15.5); Mean Corpuscular Hemoglobin 37.7 pg (27.0-33.0); Mean Corpuscular Volume 108.4 fL (81.6-98.3); Red Blood Cell (RBC) Count 3.10 10x6/uL (3.90-5.03); White Blood Cell (WBC) Count 6.05 10x3/uL (3.5-10.5)
[2024-10-29 04:57] LABS: Bilirubin, Direct 17.2 mg/dL (0.1-0.3)
[2024-10-29 05:02] LABS: Bilirubin, Total 25.8 mg/dL (0.3-1.2)
[2024-10-29 05:06] LABS: ALT (SGPT) 59 U/L (Less than 34); AST (SGOT) 170 U/L (11-34); Albumin 2.9 g/dL (3.1-4.5); Alkaline Phosphatase 108 U/L (40-110); Anion Gap 13 mmol/L (10-20); BUN (Urea Nitrogen) 12 mg/dL (9.8-20.1); Calc. Creatinine Clearance 122 mL/min (70-130); Calcium 8.7 mg/dL (7.8-10.44); Carbon Dioxide 26 mmol/L (23-31); Chloride 94 mmol/L (98-107); Glucose 75 mg/dL (80-115); Magnesium 1.9 mg/dL (1.6-2.6); Potassium 3.9 mmol/L (3.5-5.1); Sodium 129 mmol/L (136-145)
[2024-10-29] MEDS: Magnesium 2 GM/50 ML(in water) 2 GM in Premix 1 BAG IVPB SCH (09:41)
[2024-10-30 05:39] LABS: Platelet Count 99 10x3/uL (150-450)
[2024-10-30 05:40] LABS: #Basophils 0.04 10x3/uL (0.0-0.2); #Eosinophils 0.07 10x3/uL (0.0-0.5); #Monocytes 0.55 10x3/uL (0.0-1.1); #Neutrophils 5.17 10x3/uL (1.5-8.4); %Basophils 0.6 % (0.0-2.0); %Eosinophils 1.0 % (0.0-6.0); %Lymphocytes 10.7 % (18.0-47.0); %Monocytes 8.2 % (0.0-10.0); %Neutrophils 77.3 % (40.0-75.0); Hematocrit 33.2 % (34.9-44.5); Hemoglobin 11.3 g/dL (12.0-15.5); INR-International Normal Ratio 1.7; Mean Corpuscular Hemoglobin 37.2 pg (27.0-33.0); Mean Corpuscular Volume 109.2 fL (81.6-98.3); PTT 34.7 sec (22.0-33.0); Prothrombin Time 17.7 sec (9.5-12.1); Red Blood Cell (RBC) Count 3.04 10x6/uL (3.90-5.03); White Blood Cell (WBC) Count 6.70 10x3/uL (3.5-10.5)
[2024-10-30 05:43] LABS: ALT (SGPT) 53 U/L (Less than 34); AST (SGOT) 154 U/L (11-34); Albumin 3.1 g/dL (3.1-4.5); Alkaline Phosphatase 98 U/L (40-110)
[2024-10-30 05:44] LABS: Anion Gap 13 mmol/L (10-20); BUN (Urea Nitrogen) 11 mg/dL (9.8-20.1); Calc. Creatinine Clearance 137 mL/min (70-130); Calcium 8.9 mg/dL (7.8-10.44); Carbon Dioxide 26 mmol/L (23-31); Chloride 94 mmol/L (98-107); Glucose 107 mg/dL (80-115); Magnesium 1.9 mg/dL (1.6-2.6); Potassium 3.8 mmol/L (3.5-5.1); Sodium 129 mmol/L (136-145)
[2024-10-30 05:50] LABS: Bilirubin, Direct 17.0 mg/dL (0.1-0.3)
[2024-10-30 05:57] LABS: Bilirubin, Total 26.5 mg/dL (0.3-1.2)
[2024-10-30] MEDS: Magnesium 2 GM/50 ML(in water) 2 GM in Premix 1 BAG IVPB SCH ×2 (10:22→12:56)
[2024-10-31 04:27] LABS: Hematocrit 34.8 % (34.9-44.5); Hemoglobin 11.9 g/dL (12.0-15.5); Mean Corpuscular Hemoglobin 37.8 pg (27.0-33.0); Mean Corpuscular Volume 110.5 fL (81.6-98.3); Platelet Count 119 10x3/uL (150-450); Red Blood Cell (RBC) Count 3.15 10x6/uL (3.90-5.03); White Blood Cell (WBC) Count 8.82 10x3/uL (3.5-10.5)
[2024-10-31 04:28] LABS: #Basophils 0.03 10x3/uL (0.0-0.2); #Eosinophils 0.08 10x3/uL (0.0-0.5); #Monocytes 0.80 10x3/uL (0.0-1.1); #Neutrophils 6.82 10x3/uL (1.5-8.4); %Basophils 0.3 % (0.0-2.0); %Eosinophils 0.9 % (0.0-6.0); %Lymphocytes 10.2 % (18.0-47.0); %Monocytes 9.1 % (0.0-10.0); %Neutrophils 77.3 % (40.0-75.0)
[2024-10-31 04:32] LABS: INR-International Normal Ratio 1.6; PTT 31.6 sec (22.0-33.0); Prothrombin Time 16.3 sec (9.5-12.1)
[2024-10-31 04:39] LABS: ALT (SGPT) 61 U/L (Less than 34); AST (SGOT) 174 U/L (11-34); Albumin 3.0 g/dL (3.1-4.5); Alkaline Phosphatase 108 U/L (40-110); Bilirubin, Direct 19.0 mg/dL (0.1-0.3); Magnesium 2.2 mg/dL (1.6-2.6)
[2024-10-31 04:45] LABS: Bilirubin, Total 29.7 mg/dL (0.3-1.2)
[2024-11-01 04:02] LABS: INR-International Normal Ratio 1.6; PTT 31.1 sec (22.0-33.0); Prothrombin Time 16.7 sec (9.5-12.1)
[2024-11-01 04:09] LABS: Bilirubin, Total 30.1 mg/dL (0.3-1.2)
[2024-11-01 04:12] LABS: Platelet Count 125 10x3/uL (150-450)
[2024-11-01 04:13] LABS: #Basophils 0.05 10x3/uL (0.0-0.2); #Eosinophils 0.06 10x3/uL (0.0-0.5); #Monocytes 0.75 10x3/uL (0.0-1.1); #Neutrophils 7.50 10x3/uL (1.5-8.4); %Basophils 0.5 % (0.0-2.0); %Eosinophils 0.6 % (0.0-6.0); %Lymphocytes 10.2 % (18.0-47.0); %Monocytes 7.9 % (0.0-10.0); %Neutrophils 79.1 % (40.0-75.0)
[2024-11-01 04:14] LABS: Hematocrit 35.0 % (34.9-44.5); Hemoglobin 12.0 g/dL (12.0-15.5); Mean Corpuscular Hemoglobin 37.7 pg (27.0-33.0); Mean Corpuscular Volume 110.1 fL (81.6-98.3); Red Blood Cell (RBC) Count 3.18 10x6/uL (3.90-5.03); White Blood Cell (WBC) Count 9.49 10x3/uL (3.5-10.5)
[2024-11-01 04:21] LABS: ALT (SGPT) 66 U/L (Less than 34); AST (SGOT) 182 U/L (11-34); Albumin 2.9 g/dL (3.1-4.5); Alkaline Phosphatase 102 U/L (40-110)
[2024-11-01 04:22] LABS: Bilirubin, Direct 18.6 mg/dL (0.1-0.3)
[2024-11-01] MEDS: Furosemide 40 MG TAB PO SCH (06:38)
[2024-11-01 09:12] LABS: Magnesium 1.7 mg/dL (1.6-2.6)
[2024-11-01 09:13] LABS: Magnesium 1.7 mg/dL (1.6-2.6)
[2024-11-01 09:19] LABS: Anion Gap 18 mmol/L (10-20); BUN (Urea Nitrogen) 12 mg/dL (9.8-20.1); Calc. Creatinine Clearance 119 mL/min (70-130); Calcium 9.0 mg/dL (7.8-10.44); Carbon Dioxide 22 mmol/L (23-31); Chloride 95 mmol/L (98-107); Glucose 94 mg/dL (80-115); Potassium 3.9 mmol/L (3.5-5.1); Sodium 131 mmol/L (136-145)
[2024-11-01] MEDS: Magnesium 2 GM/50 ML(in water) 2 GM in Premix 1 BAG IVPB SCH (11:15)
[2024-11-01] MEDS ORDERED: Magnesium 2 GM/50 ML(in water) 2 GM in Premix 1 BAG IVPB SCH (11:45)
[2024-11-01 14:06] VITALS: BMI 38.3
[2024-11-01 16:50] VITALS: BP 126/65; TEMP 97.9
[2024-11-01] MEDS ORDERED: Enoxaparin 40 MG (0.4 mL) SYRINGE SC SCH (21:00)
== END 2024-11-01 17:32 | disposition home or self-care (01) | DRG 433 ==
LOC: CSHERS 08:13 → CSHTELE 13:14 → CSHICU 10-21 12:12 → CSHTELE 10-24 20:22
PROVIDERS: ADMIT Hospitalist; ATTEND Family Medicine
PROC: 30233J1 Transfusion of Nonautologous Serum Albumin into Peripheral Vein, Percutaneous Approach (ICD-10-PCS; 2024-10-20)
PROC: 30233K1 Transfusion of Nonautologous Frozen Plasma into Peripheral Vein, Percutaneous Approach (ICD-10-PCS; principal; 2024-10-23)
DX: K70.31 Alcoholic cirrhosis of liver with ascites (principal); E87.1 Hypo-osmolality and hyponatremia; E87.20 Acidosis, unspecified; F10.139 Alcohol abuse with withdrawal, unspecified; K76.6 Portal hypertension; E83.42 Hypomagnesemia; E87.6 Hypokalemia; K70.11 Alcoholic hepatitis with ascites; D69.6 Thrombocytopenia, unspecified; E87.70 Fluid overload, unspecified; Y90.4 Blood alcohol level of 80-99 mg/100 ml; E03.9 Hypothyroidism, unspecified; R74.01 Elevation of levels of liver transaminase levels; E80.6 Other disorders of bilirubin metabolism; F32.A Depression, unspecified; F41.8 Other specified anxiety disorders; F12.10 Cannabis abuse, uncomplicated; Z88.8 Allergy status to other drugs, medicaments and biological substances; Z71.6 Tobacco abuse counseling
CPT/HCPCS: 36415; 36416; 36430; 71045; 74177; 76705; 80048; 80053; 80074; 80076; 80306; 80307; 82140; 83605; 83735; 83880; 84100; 84439; 84443; 84481; 84484; 85025; 85610; 85730; 86850; 86900; 86901; 93005; 94760; 94762; 96374; J0132; J1650; J1940; J2270; J2405; J2470; J2765; J3411; J3475; J7030; J7050; J7070; J7510; P9047; P9059; Q0162; Q9967